=== PATIENT | female | born 1945 | race Hispanic/Latino ===

== ENCOUNTER 2019-10-06 10:38 | Inpatient (IN) | payer MEDICARE ==
[2019-10-06] MEDS ORDERED: ZIPRASIDONE MESYLATE 20 MG VIAL IM PRN (11:37)
[2019-10-06] MEDS ORDERED: BENZTROPINE 2 MG/2 ML INJ IM NR (11:37)
[2019-10-06] MEDS ORDERED: PROMETHAZINE 25 MG TAB PO PRN ×2 (11:37)
[2019-10-07] MEDS ORDERED: NON-FORMULARY EACH (Oxcarbazepine [Trileptal] 600 MG) PO SCH (07:30)
[2019-10-07] MEDS ORDERED: TETRACYCLINE HCL 250 MG PO SCH (07:30)
[2019-10-07] MEDS: LORazepam 2 MG/ML VIAL IM PRN (07:41)
[2019-10-07] MEDS ORDERED: hydrOXYzine HCL 25 MG TAB PO SCH (08:00)
[2019-10-07] MEDS ORDERED: FUROSEMIDE 20 MG TAB PO SCH (08:00)
--- NOTE | 2019-10-07 08:12 | History and Physical Report ---
GP History & Physical - History of Present Illness Date of admission: 10/07/19 Date of Examination: 10/07/19 Reason for Admission: Danger to others, Psychopathology interference Chief Complaint: Acute Cherise History of Present Illness: Nurse Admission note: A 74yrs old female brought in by EMS on a stretcher,accompanied by staff from the facility she was coming from. Pt diagnosed with Bipolar Disorder Acute Cherise. Hx of DM, PVD, Chronic Venous DX, HTN, Hepatitis CVery talkative yelling, angry and upset. Transferred by EMS staff to a w/c. Pt. continued to carry on , non compliant, not listening and will not follow direction, but finally allowed staff to asses her skin. She has vascular wound on Rt medial ankle and Lt anterior foot. She refused to eat her lunch and will not be still for vital signs. Will continue to monitor. HPI Patient is a 74 year old female with past psychiatric history of schizophrenia who presented to facility with acute cherise. Patient seen yelling threatening to staff, constantly hyperverbal and saying the same set of words to every staff member. She reports being here because "Mary" a family of hers and encouraged her and lied to her to come here. Patients states she does not need any psychiatric intervention, she threatened to mckinley, says she has ulcers in her legs and they are genetic. Patient also reports she wont be taking any medication at all. Pt refused to answer questions pertaining to mental health history. She is hyper verbal, irritated, poor sleep and displays Grandiosity, threatening to mckinley and make everyone loose everything that they have got because she can. Continues to be hyperverbal, has only slept less than 2 hours and refusing oral meds. PRN medication given for acute manic symptoms and medication non compliance as pt is agitated towards staff. PAST PSYCHIATRIC HISTORY: Diagnoses: Bipolar Suicide attempts or Self-harm behavior Prior psychiatric hospitalizations Substance Abuse history: Previous psychiatric medications tried: Outpatient treatment: PAST MEDICAL HISTORY: Family Psychiatric History: None reported or documented SOCIAL HISTORY Marital Status: Living Arrangements: Employment Status: Access to guns/weapons: Education: History of Abuse: Legal History: REVIEW OF SYSTEMS ROS cannot be reliably obtained from the patient due to her present mental state MENTAL STATUS EXAMINATION General Appearance and Behavior: Age appropriate, good hygiene, wearing appropriate clothes, lying in bed, good eye contact, uncooperative irritable with questioning. Cooperation: Hostile and Guarded Psychomotor Behavior: unremarkable and within normal limits Mood: not good Affect and affective range: dysthymic, irritable Thought Process: Circumstantial, Pressured Thought Content: Obsessions, Illogical, Grandiose, Phobia Paranoid Speech: N pressured, loud volume Intellectual Functioning: Average Suicidal Ideation: Denies SI Homicidal Ideation: Denies HI Impulse Control: Impaired Insight and Judgment: Limited insight and judgment Memory: unaccessible Attention: Divided attention impaired Orientation: Alert, oriented Assessment and Plan - Psychiatric problem (1) Severe manic bipolar 1 disorder with psychotic behavior Current Visit: Yes Status: Acute Treatment Plan Pt currenlty refusing meds Patient will be admitted for inpatient psychiatric evaluation, medication adjustment and close monitoring The patient's behavior, mood, sleep and appetite will be closely monitored. Patient will be enrolled in individual and group therapeutic sessions and encouraged to attend. Patient will be provided with a safe and structured environment. Patient's physical health needs will be addressed by the Hospitalist. Hospitalist Consulted Labs including CBC, CMP, Lipid profile and Hemoglobin A1C ordered Social Assessment will be completed and the Fermentation Scientist will work with patient and family to ensure a suitable and safe disposition Medication adjustment will be made as clinically indicated Usual Wellness Religious/Preservation: - Start Trazodone 50 mg po QHS & 50 mg po QHS PRN between 10 PM & 2 AM for insomnia - Start Melatonin 5 mg po QHS to promote circadian rhythm - Start [place]-3 for brain health, reduce impulsivity, and as adjunctive treatment for mood disorder, continue upon discharge given overall benefits. - Start B1 prophylaxis with 200 mg po for 5 days The patient agreed on the treatment plan, understood the risk, benefit, alternative treatment, potential consequence of no treatment, and gave informed consent. Initial Certification Inpatient psych services: I certify that the inpatient psychiatric services are required for treatment that could reasonably be expected to improve the patient's condition. Estimated days: 7 Post hospital care: primary care provider, psychiatric provider Legal Status: Other (1014 status) Patient Problems: Current Active Problems Severe manic bipolar 1 disorder with psychotic behavior (Acute) Reaction to Hospitalization: Accepting Medications and Allergies Allergies Allergy/AdvReac Type Severity Reaction Status Date / Time divalproex sodium Allergy Hives Verified 02/02/13 15:16 [From Depakote] Interferons Allergy Hives Verified 02/02/13 15:15 latex Allergy Hives Verified 02/02/13 15:17 levofloxacin [From Levaquin] Allergy Unknown Unverified 10/06/19 11:18 mupirocin [From Bactroban] Allergy Hives Verified 02/02/13 15:17 mupirocin calcium Allergy Hives Verified 02/02/13 15:17 [From Bactroban] Penicillins Allergy Hives Verified 02/02/13 15:16 Sulfa (Sulfonamide Allergy Unknown Unverified 10/06/19 11:17 Antibiotics) lithium AdvReac Unknown Unverified 10/06/19 11:18 mycins Allergy Hives Uncoded 02/02/13 15:17 Home Medications Medication Instructions Recorded Confirmed Last Taken Type Furosemide [Lasix TAB] 20 mg PO [facility] 10/06/19 10/06/19 Unknown History Nitrofurantoin Macrocrystal 100 mg PO [facility] 10/06/19 10/06/19 Unknown History [Nitrofurantoin] OXcarbazepine [Trileptal] 600 mg PO [facility] 10/06/19 10/06/19 Unknown History Potassium Chloride [K-Dur] 10 meq PO [facility] 10/06/19 10/06/19 Unknown History QUEtiapine [SEROquel] 200 mg PO [facility] 10/06/19 10/06/19 Unknown History Tetracycline HCl 250 mg PO [facility] 10/06/19 10/06/19 Unknown History busPIRone [Buspar] 5 mg PO [facility] 10/06/19 10/06/19 Unknown History hydrOXYzine HCL [Atarax] 25 mg PO [facility] 10/06/19 10/06/19 Unknown History lamoTRIgine [LaMICtal] 100 mg PO K 10/06/19 10/06/19 Unknown History Active Meds: Active Medications Buspirone HCl (Buspar) 5 mg PO K [facility] Furosemide (Lasix) 20 mg PO K [facility] Hydroxyzine HCl (Atarax) 25 mg PO UNK [facility] Lamotrigine (Lamictal) 100 mg PO [facility] Lorazepam (Ativan) 2 mg IM Q4HR PRN PRN Reason: Agitation Last Admin: 10/07/19 07:41 Dose: 2 mg Documented by: Miscellaneous Medication (Oxcarbazepine [Trileptal]) 600 mg PO [facility] Miscellaneous Medication (Tetracycline Hcl [Tetracycline Hcl]) 250 mg PO [facility] Potassium Chloride (K-Dur) 10 meq PO [facility] Quetiapine Fumarate (Seroquel) 200 mg PO [facility] Ziprasidone (Geodon) 10 mg IM Q4H PRN PRN Reason: Agitation Stop: 10/07/19 11:37 Last Admin: 10/07/19 07:41 Dose: 10 mg Documented by: Results - Results Labs/Vitals: Laboratory Last Values POC Glucose 117 (70-105) H 10/06/19 17:14 Assessment and Plan - Psychiatric problem (1) Severe manic bipolar 1 disorder with psychotic behavior Current Visit: Yes Status: Acute Physician Certification - Certification Statement Physician Certification Statement: This is an acknowledgement statement that SMILEY MISTRY is a 74 year old F who requires inpatient psychiatric admission for treatment which could reasonably be expected to improve the patient's condition for Estimated period of time patient will need to remain in the hospital: [ ] Plan for post-hospital care: [ ]
[2019-10-07] MEDS: POTASSIUM CHLORIDE ER 10 MEQ TAB PO SCH (19:07)
[2019-10-07] MEDS: busPIRone 5 MG TAB PO SCH ×2 (19:07→21:44)
[2019-10-07] MEDS: lamoTRIgine 100 MG TAB PO SCH (19:09)
[2019-10-07] MEDS: OXcarbazepine 300 MG TAB PO SCH ×2 (19:09→21:44)
[2019-10-07] MEDS: QUEtiapine 200 MG TAB PO SCH (21:44)
--- NOTE | 2019-10-08 07:48 | Progress Note ---
Subjective Date of service: 10/08/19 Principal diagnosis: Severe manic bipolar 1 disorder with psychotic behavior Subjective Comment: Psych Nurse: 1840 Received pt. in am very anxious, agitated, talkative, repeating same statements of how her life has been destroyed, Ms Hernandez has lost her trust, how she got vascular disease from her family, how she will mckinley the hospital and the hospital will loose all her money. Pt non-compliant with care, yelling at staff and not wanting help from staff. Finally, she slept for about 6hrs, woke up and began repeating the same statements. She refused all her meds. Finally at about 1640, pt agreed to have a desert and she ate all of it. Psych Progress Patient seen this AM, awake and alert, informed patient if she is aware that not sleeping is contributing poorly and negatively to her mental health and she needs to be compliant and take her medicines. Patient agrees to take her home meds and seroquel only. Reason for inpatient psychiatric hospitalizaiton: Medication non compliance, acute cherise with secondary paranoia EVIEW OF SYSTEMS ROS cannot be reliably obtained from the patient due to her present mental state MENTAL STATUS EXAMINATION General Appearance and Behavior: Age appropriate, good hygiene, wearing appropriate clothes, lying in bed, good eye contact, uncooperative irritable with questioning. Cooperation: Hostile and Guarded Psychomotor Behavior: unremarkable and within normal limits Mood: not good Affect and affective range: dysthymic, irritable Thought Process: Circumstantial, Pressured Thought Content: Obsessions, Illogical, Grandiose, Phobia Paranoid Speech: N pressured, loud volume Intellectual Functioning: Average Suicidal Ideation: Denies SI Homicidal Ideation: Denies HI Impulse Control: Impaired Insight and Judgment: Limited insight and judgment Memory: unaccessible Attention: Divided attention impaired Orientation: Alert, oriented Assessment and Plan Psychiatric problem (1) Severe manic bipolar 1 disorder with psychotic behavior Current Visit: Yes Status: Acute Treatment Plan Pt currenlty refusing meds Patient will be admitted for inpatient psychiatric evaluation, medication adjustment and close monitoring The patient's behavior, mood, sleep and appetite will be closely monitored. Patient will be enrolled in individual and group therapeutic sessions and encouraged to attend. Patient will be provided with a safe and structured environment. Patient's physical health needs will be addressed by the Hospitalist. Hospitalist Consulted Labs including CBC, CMP, Lipid profile and Hemoglobin A1C ordered Social Assessment will be completed and the Block Breaker Operator will work with patient and family to ensure a suitable and safe disposition Medication adjustment will be made as clinically indicated Usual Wellness Baptism/Preservation: - Start Trazodone 50 mg po QHS & 50 mg po QHS PRN between 10 PM & 2 AM for insomnia - Start Melatonin 5 mg po QHS to promote circadian rhythm - Start [place]-3 for brain health, reduce impulsivity, and as adjunctive treatment for mood disorder, continue upon discharge given overall benefits. - Start B1 prophylaxis with 200 mg po for 5 days The patient agreed on the treatment plan, understood the risk, benefit, alternative treatment, potential consequence of no treatment, and gave informed consent. Initial Certification Inpatient psych services: I certify that the inpatient psychiatric services are required for treatment that could reasonably be expected to improve the patient's condition. Assessment and Plan - Patient Problems (1) Severe manic bipolar 1 disorder with psychotic behavior Current Visit: Yes Status: Acute Medications and Allergies Allergies Allergy/AdvReac Type Severity Reaction Status Date / Time divalproex sodium Allergy Hives Verified 02/02/13 15:16 [From Depakote] Interferons Allergy Hives Verified 02/02/13 15:15 latex Allergy Hives Verified 02/02/13 15:17 levofloxacin [From Levaquin] Allergy Unknown Unverified 10/06/19 11:18 mupirocin [From Bactroban] Allergy Hives Verified 02/02/13 15:17 mupirocin calcium Allergy Hives Verified 02/02/13 15:17 [From Bactroban] Penicillins Allergy Hives Verified 02/02/13 15:16 Sulfa (Sulfonamide Allergy Unknown Unverified 10/06/19 11:17 Antibiotics) lithium AdvReac Unknown Unverified 10/06/19 11:18 mycins Allergy Hives Uncoded 02/02/13 15:17 Home Medications Medication Instructions Recorded Confirmed Last Taken Type Furosemide [Lasix TAB] 20 mg PO [facility] 10/06/19 10/06/19 Unknown History Nitrofurantoin Macrocrystal 100 mg PO [facility] 10/06/19 10/06/19 Unknown History [Nitrofurantoin] OXcarbazepine [Trileptal] 600 mg PO [facility] 10/06/19 10/06/19 Unknown History Potassium Chloride [K-Dur] 10 meq PO [facility] 10/06/19 10/06/19 Unknown History QUEtiapine [SEROquel] 200 mg PO [facility] 10/06/19 10/06/19 Unknown History Tetracycline HCl 250 mg PO [facility] 10/06/19 10/06/19 Unknown History busPIRone [Buspar] 5 mg PO [facility] 10/06/19 10/06/19 Unknown History hydrOXYzine HCL [Atarax] 25 mg PO [facility] 10/06/19 10/06/19 Unknown History lamoTRIgine [LaMICtal] 100 mg PO [facility] 10/06/19 10/06/19 Unknown History Active Meds: Active Medications Buspirone HCl (Buspar) 5 mg PO BID [facility] Last Admin: 10/07/19 21:44 Dose: Not Given Documented by: Furosemide (Lasix) 20 mg PO K [facility] Hydroxyzine Pamoate (Vistaril) 25 mg PO Q6H PRN PRN Reason: Anxiety Lamotrigine (Lamictal) 100 mg PO DAILY [facility] Last Admin: 10/07/19 19:09 Dose: Not Given Documented by: Lorazepam (Ativan) 2 mg IM Q4HR PRN PRN Reason: Agitation Last Admin: 10/07/19 07:41 Dose: 2 mg Documented by: Oxcarbazepine (Trileptal) 600 mg PO BID [facility] Last Admin: 10/07/19 21:44 Dose: Not Given Documented by: Potassium Chloride (K-Dur) 10 meq PO DAILY [facility] Last Admin: 10/07/19 19:07 Dose: Not Given Documented by: Quetiapine Fumarate (Seroquel) 200 mg PO QHS [facility] Last Admin: 10/07/19 21:44 Dose: Not Given Documented by: Results - Results Labs/Vitals: Laboratory Last Values POC Glucose 113 (70-105) H 10/08/19 06:38 Last Vital Signs Temp 98.9 F 10/07/19 22:00 Pulse 78 10/07/19 22:00 Resp 18 10/07/19 22:00 BP 142/76 10/07/19 22:00 Pulse Ox 98 10/07/19 22:00
[2019-10-08] MEDS: busPIRone 5 MG TAB PO SCH ×2 (09:40→22:23)
[2019-10-08] MEDS: POTASSIUM CHLORIDE ER 10 MEQ TAB PO SCH (09:40)
[2019-10-08] MEDS: OXcarbazepine 300 MG TAB PO SCH ×2 (09:40→22:22)
[2019-10-08] MEDS: lamoTRIgine 100 MG TAB PO SCH (09:41)
[2019-10-08] MEDS: QUEtiapine 200 MG TAB PO SCH (22:24)
[2019-10-09] MEDS: OXcarbazepine 300 MG TAB PO SCH ×2 (09:14→21:43)
[2019-10-09] MEDS: lamoTRIgine 100 MG TAB PO SCH (09:14)
[2019-10-09] MEDS: POTASSIUM CHLORIDE ER 10 MEQ TAB PO SCH (09:14)
[2019-10-09] MEDS: busPIRone 5 MG TAB PO SCH ×2 (09:15→21:43)
--- NOTE | 2019-10-09 10:31 | Progress Note ---
Subjective Date of service: 10/09/19 Principal diagnosis: Severe manic bipolar 1 disorder with psychotic behavior Subjective Comment: The patient's medical record was reviewed and the patient's progress was discussed with the nursing staff. The nurse note states the patient denies si/hi/ah vh. Patient presents as mildly paranoid especially regarding her medication. She was reluctant to take her medications but was reminded the doctor said she would need a shot if she didn't take them During my interview with the patient today, she is sitting in the dayroom. She is a/o x 2. She is calm and cooperative. She is [place]. She denies SI/HI or hallucinations of any kind. Her thoughts are somewhat disorganized. She asks "how many floors does this place have?" She then says, "Is it still open?" The patients asks, "how often do yall test for the barr virus?" The reason for continued inpatient treatment: The patient appears to be paranoid at times, and disorganized. Will continue to treat and stabilize in order to ensue a safe discharge. REVIEW OF SYSTEMS Constitutional: Negative for weight loss ENT: Negative for stridor Respiratory: Negative for cough or hemoptysis All other systems reviewed and are negative MENTAL STATUS EXAMINATION General Appearance: Dressed appropriately Behavior: Calm and cooperative Mood: "spirits stay up" Affect and affective range: Congruent with stated mood Thought Process: tangential, disorganized Speech: Normal volume, Regular rate and rhythm, Thought Content: Suicidal Ideation: Denies SI Homicidal Ideation: Denies HI Hallucinations: Denies Delusions: Yes Insight and Judgment: Limited Memory/Cognition: Impaired Attention: Normal Assessment Bipolar Disorder, Current Episode Elsie Treatment Plan Patient will be admitted for inpatient psychiatric evaluation, medication adjustment and close monitoring The patient's behavior, mood, sleep and appetite will be closely monitored. Patient will be enrolled in individual and group therapeutic sessions and encouraged to attend. Patient will be provided with a safe and structured environment. Patient's physical health needs will be addressed by the Hospitalist. Hospitalist Consulted Labs including CBC, CMP, Lipid profile and Hemoglobin A1C ordered Social Assessment will be completed and the Third Officer will work with pat ient and family to ensure a suitable and safe disposition Medication adjustment will be made as clinically indicated No changes today Usual Wellness Yarsanism/Preservation: - Start Trazodone 50 mg po QHS & 50 mg po QHS PRN between 10 PM & 2 AM for insomnia - Start Melatonin 5 mg po QHS to promote circadian rhythm The patient agreed on the treatment plan, understood the risk, benefit, alternative treatment, potential consequence of no treatment, and gave informed consent. Estimated Length of stay (3 days) Outpatient psychiatry upon discharge Medications and Allergies Allergies Allergy/AdvReac Type Severity Reaction Status Date / Time divalproex sodium Allergy Hives Verified 02/02/13 15:16 [From Depakote] Interferons Allergy Hives Verified 02/02/13 15:15 latex Allergy Hives Verified 02/02/13 15:17 levofloxacin [From Levaquin] Allergy Unknown Unverified 10/06/19 11:18 mupirocin [From Bactroban] Allergy Hives Verified 02/02/13 15:17 mupirocin calcium Allergy Hives Verified 02/02/13 15:17 [From Bactroban] Penicillins Allergy Hives Verified 02/02/13 15:16 Sulfa (Sulfonamide Allergy Unknown Unverified 10/06/19 11:17 Antibiotics) lithium AdvReac Unknown Unverified 10/06/19 11:18 mycins Allergy Hives Uncoded 02/02/13 15:17 Home Medications Medication Instructions Recorded Confirmed Last Taken Type Furosemide [Lasix TAB] 20 mg PO [facility] 10/06/19 10/06/19 Unknown History Nitrofurantoin Macrocrystal 100 mg PO [facility] 10/06/19 10/06/19 Unknown History [Nitrofurantoin] OXcarbazepine [Trileptal] 600 mg PO [facility] 10/06/19 10/06/19 Unknown History Potassium Chloride [K-Dur] 10 meq PO [facility] 10/06/19 10/06/19 Unknown History QUEtiapine [SEROquel] 200 mg PO [facility] 10/06/19 10/06/19 Unknown History Tetracycline HCl 250 mg PO K 10/06/19 10/06/19 Unknown History busPIRone [Buspar] 5 mg PO K 10/06/19 10/06/19 Unknown History hydrOXYzine HCL [Atarax] 25 mg PO [facility] 10/06/19 10/06/19 Unknown History lamoTRIgine [LaMICtal] 100 mg PO [facility] 10/06/19 10/06/19 Unknown History Active Meds: Active Medications Buspirone HCl (Buspar) 5 mg PO BID [facility] Last Admin: 10/09/19 09:15 Dose: 5 mg Documented by: Furosemide (Lasix) 20 mg PO UNK [facility] Hydroxyzine Pamoate (Vistaril) 25 mg PO Q6H PRN PRN Reason: Anxiety Lamotrigine (Lamictal) 100 mg PO DAILY [facility] Last Admin: 10/09/19 09:14 Dose: 100 mg Documented by: Lorazepam (Ativan) 2 mg IM Q4HR PRN PRN Reason: Agitation Last Admin: 10/07/19 07:41 Dose: 2 mg Documented by: Oxcarbazepine (Trileptal) 600 mg PO BID [facility] Last Admin: 10/09/19 09:14 Dose: 600 mg Documented by: Potassium Chloride (K-Dur) 10 meq PO DAILY [facility] Last Admin: 10/09/19 09:14 Dose: 10 meq Documented by: Quetiapine Fumarate (Seroquel) 200 mg PO QHS [facility] Last Admin: 10/08/19 22:24 Dose: 200 mg Documented by: Results - Results Labs/Vitals: Laboratory Last Values POC Glucose 93 (70-105) 10/09/19 06:30 Last Vital Signs Temp 98.6 F 10/09/19 06:33 Pulse 70 10/09/19 06:33 Resp 18 10/09/19 06:33 BP 103/55 10/09/19 06:33 Pulse Ox 93 10/09/19 06:33
[2019-10-09 17:10] LABS: Basophils # (Auto) 0.2 K/mm3 (0.0-0.1); Basophils % (Auto) 1.2 % (0.0-1.8); Eosinophils # (Auto) 0.1 K/mm3 (0.0-0.4); Eosinophils % (Auto) 1.2 % (0.0-4.3); Hemoglobin 14.1 gm/dl (10.1-14.3); Lymphocytes # (Auto) 2.9 K/mm3 (1.2-5.4); Lymphocytes % (Auto) 23.7 % (13.4-35.0); Monocytes # (Auto) 0.9 K/mm3 (0.0-0.8); Monocytes % (Auto) 7.3 % (0.0-7.3)
[2019-10-09 17:36] LABS: Alanine Aminotransferase 35 units/L (7-56); Albumin 4.8 g/dL (3.9-5); Blood Urea Nitrogen 16 mg/dL (7-17); Calcium 9.6 mg/dL (8.4-10.2); Chol/HDL Ratio 2.52 %; HDL Cholesterol 68 mg/dL (40-59); Hemolysis Index 6; LDL Cholesterol,Direct 99 mg/dL (50-130)
[2019-10-09 17:39] LABS: BUN/Creatinine Ratio 23
[2019-10-09 18:17] LABS: Mean Corpuscular HGB Conc 34 % (30-34); Mean Corpuscular Volume 88 fl (79-97); Platelet Count 436 K/mm3 (140-440); Red Blood Count 4.86 M/mm3 (3.65-5.03); Red Cell Distribution Width 14.1 % (13.2-15.2)
[2019-10-09] MEDS: QUEtiapine 200 MG TAB PO SCH (21:43)
[2019-10-10] MEDS: oxyCODONE /ACETAMINOPHEN 5-325MG TAB PO PRN (05:48)
--- NOTE | 2019-10-10 09:20 | Progress Note ---
Subjective Date of service: 10/10/19 Principal diagnosis: Severe manic bipolar 1 disorder with psychotic behavior Subjective Comment: The patient's medical record was reviewed and the patient's progress was discussed with the nursing staff. The nurse note states the patient has some verbal aggression and yelling at staff. During my interview with the patient today, the patient is awake in her room. She is a/o x 3. She is irritable and verbally aggressive at times during the interview. When assessing her orientation, she states to me "stop asking me questions that is none of your concern." She says, "and I will never speak or talk about someone like Alex Ramires whom I respect, with anyone like you," when asking the patient who was the President of the [employer]. She denies SI/HI or hallucinations of any kind, stating "No, I am not mentally ill. Thank you." The patient says she "slept good until 4:30 this morning until I had to go potty." She says her mood is "fine." The reason for continued inpatient treatment: The patient appears to be paranoid at times. Will continue to treat and stabilize in order to ensue a safe discharge. REVIEW OF SYSTEMS Constitutional: Negative for weight loss ENT: Negative for stridor Respiratory: Negative for cough or hemoptysis All other systems reviewed and are negative MENTAL STATUS EXAMINATION General Appearance: Dressed appropriately Behavior: Calm and cooperative Mood: "fine" Affect and affective range: Congruent with stated mood Thought Process: tangential, disorganized Speech: Normal volume, Regular rate and rhythm, Thought Content: Suicidal Ideation: Denies SI Homicidal Ideation: Denies HI Hallucinations: Denies Delusions: Yes Insight and Judgment: Limited Memory/Cognition: Impaired Attention: Normal Assessment Bipolar Disorder, Current Episode Elsie Treatment Plan Patient will be admitted for inpatient psychiatric evaluation, medication adjustment and close monitoring The patient's behavior, mood, sleep and appetite will be closely monitored. Patient will be enrolled in individual and group therapeutic sessions and encouraged to attend. Patient will be provided with a safe and structured environment. Patient's physical health needs will be addressed by the Hospitalist. Hospitalist Consulted Labs including CBC, CMP, Lipid profile and Hemoglobin A1C ordered Social Assessment will be completed and the Sanitation Truck Driver will work with patient and family to ensure a suitable and safe disposition Medication adjustment will be made as clinically indicated No changes today Usual Wellness Gnosticist/Preservation: - Start Trazodone 50 mg po QHS & 50 mg po QHS PRN between 10 PM & 2 AM for insomnia - Start Melatonin 5 mg po QHS to promote circadian rhythm The patient agreed on the treatment plan, understood the risk, benefit, alternative treatment, potential consequence of no treatment, and gave informed consent. Estimated Length of stay (3 days) Outpatient psychiatry upon discharge Medications and Allergies Allergies Allergy/AdvReac Type Severity Reaction Status Date / Time divalproex sodium Allergy Hives Verified 02/02/13 15:16 [From Depakote] Interferons Allergy Hives Verified 02/02/13 15:15 latex Allergy Hives Verified 02/02/13 15:17 levofloxacin [From Levaquin] Allergy Unknown Unverified 10/06/19 11:18 mupirocin [From Bactroban] Allergy Hives Verified 02/02/13 15:17 mupirocin calcium Allergy Hives Verified 02/02/13 15:17 [From Bactroban] Penicillins Allergy Hives Verified 02/02/13 15:16 Sulfa (Sulfonamide Allergy Unknown Unverified 10/06/19 11:17 Antibiotics) lithium AdvReac Unknown Unverified 10/06/19 11:18 mycins Allergy Hives Uncoded 02/02/13 15:17 Home Medications Medication Instructions Recorded Confirmed Last Taken Type Furosemide [Lasix TAB] 20 mg PO [facility] 10/06/19 10/06/19 Unknown History Nitrofurantoin Macrocrystal 100 mg PO [facility] 10/06/19 10/06/19 Unknown History [Nitrofurantoin] OXcarbazepine [Trileptal] 600 mg PO [facility] 10/06/19 10/06/19 Unknown History Potassium Chloride [K-Dur] 10 meq PO [facility] 10/06/19 10/06/19 Unknown History QUEtiapine [SEROquel] 200 mg PO [facility] 10/06/19 10/06/19 Unknown History Tetracycline HCl 250 mg PO [facility] 10/06/19 10/06/19 Unknown History busPIRone [Buspar] 5 mg PO K 10/06/19 10/06/19 Unknown History hydrOXYzine HCL [Atarax] 25 mg PO [facility] 10/06/19 10/06/19 Unknown History lamoTRIgine [LaMICtal] 100 mg PO [facility] 10/06/19 10/06/19 Unknown History Active Meds: Active Medications Buspirone HCl (Buspar) 5 mg PO BID [facility] Last Admin: 10/09/19 21:43 Dose: 5 mg Documented by: Furosemide (Lasix) 20 mg PO UNK [facility] Hydroxyzine Pamoate (Vistaril) 25 mg PO Q6H PRN PRN Reason: Anxiety Lamotrigine (Lamictal) 100 mg PO DAILY [facility] Last Admin: 10/09/19 09:14 Dose: 100 mg Documented by: Lorazepam (Ativan) 2 mg IM Q4HR PRN PRN Reason: Agitation Last Admin: 10/07/19 07:41 Dose: 2 mg Documented by: Oxcarbazepine (Trileptal) 600 mg PO BID [facility] Last Admin: 10/09/19 21:43 Dose: 600 mg Documented by: Oxycodone/Acetaminophen (Percocet 5/325) 1 tab PO Q6H PRN PRN Reason: Pain, Moderate (4-6) Last Admin: 10/10/19 05:48 Dose: 1 tab Documented by: Potassium Chloride (K-Dur) 10 meq PO DAILY [facility] Last Admin: 10/09/19 09:14 Dose: 10 meq Documented by: Quetiapine Fumarate (Seroquel) 200 mg PO QHS [facility] Last Admin: 10/09/19 21:43 Dose: 200 mg Documented by: Results - Results Labs/Vitals: Laboratory Last Values WBC 12.1 K/mm3 (4.5-11.0) H 10/09/19 16:24 RBC 4.86 M/mm3 (3.65-5.03) 10/09/19 16:24 Hgb 14.1 gm/dl (10.1-14.3) 10/09/19 16:24 Hct 43.0 % (30.3-42.9) H 10/09/19 16:24 MCV 88 fl (79-97) 10/09/19 16:24 MCH 30 pg (28-32) 10/09/19 16:24 MCHC 34 % (30-34) 10/09/19 16:24 RDW 14.1 % (13.2-15.2) 10/09/19 16:24 Plt Count 436 K/mm3 (140-440) 10/09/19 16:24 Lymph % (Auto) 23.7 % (13.4-35.0) 10/09/19 16:24 [place] % (Auto) 7.3 % (0.0-7.3) 10/09/19 16:24 Eos % (Auto) 1.2 % (0.0-4.3) 10/09/19 16:24 Baso % (Auto) 1.2 % (0.0-1.8) 10/09/19 16:24 Lymph # 2.9 K/mm3 (1.2-5.4) 10/09/19 16:24 [place] # 0.9 K/mm3 (0.0-0.8) H 10/09/19 16:24 Eos # 0.1 K/mm3 (0.0-0.4) 10/09/19 16:24 Baso # 0.2 K/mm3 (0.0-0.1) H 10/09/19 16:24 Seg Neutrophils % 66.6 % (40.0-70.0) 10/09/19 16:24 Seg Neutrophils # 8.1 K/mm3 (1.8-7.7) H 10/09/19 16:24 Sodium 130 mmol/L (137-145) L 10/09/19 16:24 Potassium 4.6 mmol/L (3.6-5.0) 10/09/19 16:24 Chloride 91.8 mmol/L (98-107) L 10/09/19 16:24 Carbon Dioxide 25 mmol/L (22-30) 10/09/19 16:24 Anion Gap 18 mmol/L 10/09/19 16:24 BUN 16 mg/dL (7-17) 10/09/19 16:24 Creatinine 0.7 mg/dL (0.6-1.2) 10/09/19 16:24 Estimated GFR > 60 ml/min 10/09/19 16:24 BUN/Creatinine Ratio 23 % 10/09/19 16:24 Glucose 99 mg/dL (65-100) 10/09/19 16:24 POC Glucose 107 (70-105) H 10/10/19 07:05 Hemoglobin A1c 5.3 % (4-6) 10/09/19 16:24 Calcium 9.6 mg/dL (8.4-10.2) 10/09/19 16:24 Total Bilirubin 0.30 mg/dL (0.1-1.2) 10/09/19 16:24 AST 33 units/L (5-40) 10/09/19 16:24 ALT 35 units/L (7-56) 10/09/19 16:24 Alkaline Phosphatase 110 units/L (35-129) 10/09/19 16:24 Total Protein 7.1 g/dL (6.3-8.2) 10/09/19 16:24 Albumin 4.8 g/dL (3.9-5) 10/09/19 16:24 Albumin/Globulin Ratio 2.1 % 10/09/19 16:24 Triglycerides 67 mg/dL (2-149) 10/09/19 16:24 Cholesterol 172 mg/dL (50-199) 10/09/19 16:24 LDL Cholesterol Direct 99 mg/dL (50-130) 10/09/19 16:24 HDL Cholesterol 68 mg/dL (40-59) H 10/09/19 16:24 Cholesterol/HDL Ratio 2.52 % 10/09/19 16:24 TSH 1.200 mlU/mL (0.270-4.200) 10/09/19 16:24 Last Vital Signs Temp 99.5 F 10/09/19 19:51 Pulse 74 10/09/19 19:51 Resp 20 10/09/19 19:51 BP 134/73 10/09/19 19:51 Pulse Ox 100 10/09/19 19:51
[2019-10-10] MEDS: busPIRone 5 MG TAB PO SCH ×2 (12:17→21:24)
[2019-10-10] MEDS: hydrOXYzine PAMOATE 25 MG CAP PO PRN ×2 (12:17→21:25)
[2019-10-10] MEDS: lamoTRIgine 100 MG TAB PO SCH (12:18)
[2019-10-10] MEDS: POTASSIUM CHLORIDE ER 10 MEQ TAB PO SCH (12:19)
[2019-10-10] MEDS: OXcarbazepine 300 MG TAB PO SCH ×2 (20:37→21:24)
[2019-10-10] MEDS: QUEtiapine 200 MG TAB PO SCH (21:24)
[2019-10-11] MEDS: oxyCODONE /ACETAMINOPHEN 5-325MG TAB PO PRN (01:04)
--- NOTE | 2019-10-11 09:16 | Progress Note ---
Subjective Date of service: 10/11/19 Principal diagnosis: Severe manic bipolar 1 disorder with psychotic behavior Subjective Comment: The patient's medical record was reviewed and the patient's progress was discussed with the nursing staff. The nurse note states the patient is alert and oriented x 3. She was offered assistance to take shower and have dressings changed. She shouted at staff repeatedly. "No, Leave me alone. I will not do it. I'm supposed to do that Mondays and ." Patient refused assistance to go to BR but was observed doing it correctly on her own. During my interview with the patient today, the patient is awake in her room. She is a/o x 3. She seems irritable, although she says she feels "okay." The patient states, "I just wish everyone would stop asking me that." She denies SI/HI or hallucinations of any kind, stating, "stop it. I told you I'm not mentally ill. I don't have any of that." The reason for continued inpatient treatment: The patient . Will continue to treat and stabilize in order to ensue a safe discharge. REVIEW OF SYSTEMS Constitutional: Negative for weight loss ENT: Negative for stridor Respiratory: Negative for cough or hemoptysis All other systems reviewed and are negative MENTAL STATUS EXAMINATION General Appearance: Dressed appropriately Behavior: Irritable, cooperative Mood: "okay" Affect and affective range: Congruent with stated mood Thought Process: Goal directed Speech: Normal volume, Regular rate and rhythm, Thought Content: Suicidal Ideation: Denies SI Homicidal Ideation: Denies HI Hallucinations: Denies Delusions: None elicited Insight and Judgment: Limited Memory/Cognition: Impaired Attention: Normal Assessment Bipolar Disorder, Current Episode Elsie Treatment Plan Patient will be admitted for inpatient psychiatric evaluation, medication adjustment and close monitoring The patient's behavior, mood, sleep and appetite will be closely monitored. Patient will be enrolled in individual and group therapeutic sessions and encouraged to attend. Patient will be provided with a safe and structured environment. Patient's physical health needs will be addressed by the Hospitalist. Hospitalist Consulted Labs including CBC, CMP, Lipid profile and Hemoglobin A1C ordered Social Assessment will be completed and the Paper Machine Operator will work with patient and family to ensure a suitable and safe disposition Medication adjustment will be made as clinically indicated No changes today Usual Wellness Muslim/Preservation: - Start Trazodone 50 mg po QHS & 50 mg po QHS PRN between 10 PM & 2 AM for insomnia - Start Melatonin 5 mg po QHS to promote circadian rhythm The patient agreed on the treatment plan, understood the risk, benefit, alternative treatment, potential consequence of no treatment, and gave informed consent. Estimated Length of stay (2 days) Outpatient psychiatry upon discharge Medications and Allergies Allergies Allergy/AdvReac Type Severity Reaction Status Date / Time divalproex sodium Allergy Hives Verified 02/02/13 15:16 [From Depakote] Interferons Allergy Hives Verified 02/02/13 15:15 latex Allergy Hives Verified 02/02/13 15:17 levofloxacin [From Levaquin] Allergy Unknown Unverified 10/06/19 11:18 mupirocin [From Bactroban] Allergy Hives Verified 02/02/13 15:17 mupirocin calcium Allergy Hives Verified 02/02/13 15:17 [From Bactroban] Penicillins Allergy Hives Verified 02/02/13 15:16 Sulfa (Sulfonamide Allergy Unknown Verified 10/11/19 07:23 Antibiotics) lithium AdvReac Unknown Verified 10/11/19 07:24 mycins Allergy Hives Uncoded 02/02/13 15:17 Home Medications Medication Instructions Recorded Confirmed Last Taken Type Furosemide [Lasix TAB] 20 mg PO [facility] 10/06/19 10/06/19 Unknown History Nitrofurantoin Macrocrystal 100 mg PO [facility] 10/06/19 10/06/19 Unknown History [Nitrofurantoin] OXcarbazepine [Trileptal] 600 mg PO [facility] 10/06/19 10/06/19 Unknown History Potassium Chloride [K-Dur] 10 meq PO [facility] 10/06/19 10/06/19 Unknown History QUEtiapine [SEROquel] 200 mg PO [facility] 10/06/19 10/06/19 Unknown History Tetracycline HCl 250 mg PO [facility] 10/06/19 10/06/19 Unknown History busPIRone [Buspar] 5 mg PO [facility] 10/06/19 10/06/19 Unknown History hydrOXYzine HCL [Atarax] 25 mg PO K 10/06/19 10/06/19 Unknown History lamoTRIgine [LaMICtal] 100 mg PO [facility] 10/06/19 10/06/19 Unknown History Active Meds: Active Medications Buspirone HCl (Buspar) 5 mg PO BID [facility] Last Admin: 10/10/19 21:24 Dose: 5 mg Documented by: Furosemide (Lasix) 20 mg PO UNK [facility] Hydroxyzine Pamoate (Vistaril) 25 mg PO Q6H PRN PRN Reason: Anxiety Last Admin: 10/10/19 21:25 Dose: 25 mg Documented by: Lamotrigine (Lamictal) 100 mg PO DAILY [facility] Last Admin: 10/10/19 12:18 Dose: 100 mg Documented by: Lorazepam (Ativan) 2 mg IM Q4HR PRN PRN Reason: Agitation Last Admin: 10/07/19 07:41 Dose: 2 mg Documented by: Oxcarbazepine (Trileptal) 600 mg PO BID [facility] Last Admin: 10/10/19 21:24 Dose: 600 mg Documented by: Oxycodone/Acetaminophen (Percocet 5/325) 1 tab PO Q6H PRN PRN Reason: Pain, Moderate (4-6) Last Admin: 10/11/19 01:04 Dose: 1 tab Documented by: Potassium Chloride (K-Dur) 10 meq PO DAILY [facility] Last Admin: 10/10/19 12:19 Dose: 10 meq Documented by: Quetiapine Fumarate (Seroquel) 200 mg PO QHS [facility] Last Admin: 10/10/19 21:24 Dose: 200 mg Documented by: Results - Results Labs/Vitals: Laboratory Last Values WBC 12.1 K/mm3 (4.5-11.0) H 10/09/19 16:24 RBC 4.86 M/mm3 (3.65-5.03) 10/09/19 16:24 Hgb 14.1 gm/dl (10.1-14.3) 10/09/19 16:24 Hct 43.0 % (30.3-42.9) H 10/09/19 16:24 MCV 88 fl (79-97) 10/09/19 16:24 MCH 30 pg (28-32) 10/09/19 16:24 MCHC 34 % (30-34) 10/09/19 16:24 RDW 14.1 % (13.2-15.2) 10/09/19 16:24 Plt Count 436 K/mm3 (140-440) 10/09/19 16:24 Lymph % (Auto) 23.7 % (13.4-35.0) 10/09/19 16:24 [place] % (Auto) 7.3 % (0.0-7.3) 10/09/19 16:24 Eos % (Auto) 1.2 % (0.0-4.3) 10/09/19 16:24 Baso % (Auto) 1.2 % (0.0-1.8) 10/09/19 16:24 Lymph # 2.9 K/mm3 (1.2-5.4) 10/09/19 16:24 [place] # 0.9 K/mm3 (0.0-0.8) H 10/09/19 16:24 Eos # 0.1 K/mm3 (0.0-0.4) 10/09/19 16:24 Baso # 0.2 K/mm3 (0.0-0.1) H 10/09/19 16:24 Seg Neutrophils % 66.6 % (40.0-70.0) 10/09/19 16:24 Seg Neutrophils # 8.1 K/mm3 (1.8-7.7) H 10/09/19 16:24 Sodium 130 mmol/L (137-145) L 10/09/19 16:24 Potassium 4.6 mmol/L (3.6-5.0) 10/09/19 16:24 Chloride 91.8 mmol/L (98-107) L 10/09/19 16:24 Carbon Dioxide 25 mmol/L (22-30) 10/09/19 16:24 Anion Gap 18 mmol/L 10/09/19 16:24 BUN 16 mg/dL (7-17) 10/09/19 16:24 Creatinine 0.7 mg/dL (0.6-1.2) 10/09/19 16:24 Estimated GFR > 60 ml/min 10/09/19 16:24 BUN/Creatinine Ratio 23 % 10/09/19 16:24 Glucose 99 mg/dL (65-100) 10/09/19 16:24 POC Glucose 103 (70-105) 10/11/19 06:43 Hemoglobin A1c 5.3 % (4-6) 10/09/19 16:24 Calcium 9.6 mg/dL (8.4-10.2) 10/09/19 16:24 Total Bilirubin 0.30 mg/dL (0.1-1.2) 10/09/19 16:24 AST 33 units/L (5-40) 10/09/19 16:24 ALT 35 units/L (7-56) 10/09/19 16:24 Alkaline Phosphatase 110 units/L (35-129) 10/09/19 16:24 Total Protein 7.1 g/dL (6.3-8.2) 10/09/19 16:24 Albumin 4.8 g/dL (3.9-5) 10/09/19 16:24 Albumin/Globulin Ratio 2.1 % 10/09/19 16:24 Triglycerides 67 mg/dL (2-149) 10/09/19 16:24 Cholesterol 172 mg/dL (50-199) 10/09/19 16:24 LDL Cholesterol Direct 99 mg/dL (50-130) 10/09/19 16:24 HDL Cholesterol 68 mg/dL (40-59) H 10/09/19 16:24 Cholesterol/HDL Ratio 2.52 % 10/09/19 16:24 TSH 1.200 mlU/mL (0.270-4.200) 10/09/19 16:24 Last Vital Signs Temp 99.4 F 10/10/19 22:00 Pulse 105 H 10/10/19 22:00 Resp 18 10/11/19 01:04 BP 156/78 10/10/19 22:00 Pulse Ox 97 10/10/19 22:00
[2019-10-11] MEDS: OXcarbazepine 300 MG TAB PO SCH ×2 (11:00→21:33)
[2019-10-11] MEDS: busPIRone 5 MG TAB PO SCH ×2 (11:00→21:34)
[2019-10-11] MEDS: POTASSIUM CHLORIDE ER 10 MEQ TAB PO SCH (11:00)
[2019-10-11] MEDS: hydrOXYzine PAMOATE 25 MG CAP PO PRN ×2 (11:01→21:34)
[2019-10-11] MEDS: lamoTRIgine 100 MG TAB PO SCH (11:01)
--- NOTE | 2019-10-11 14:23 | Consultation ---
History of Present Illness - Reason for Consult Consult date: 10/11/19 Medical management - History of Present Illness 74 year old F with a medical history of DM, PVD, Chronic Venous DX, HTN, Hep atitis C admitted to psych unit for acute manic episode. Currently being managed for this in the unit. Not able to get medical information from patient today. She kept saying she has UTI and wants treatment. Medications have been reviewed. Medications and Allergies Allergies Allergy/AdvReac Type Severity Reaction Status Date / Time divalproex sodium Allergy Hives Verified 02/02/13 15:16 [From Depakote] Interferons Allergy Hives Verified 02/02/13 15:15 latex Allergy Hives Verified 02/02/13 15:17 levofloxacin [From Levaquin] Allergy Unknown Unverified 10/06/19 11:18 mupirocin [From Bactroban] Allergy Hives Verified 02/02/13 15:17 mupirocin calcium Allergy Hives Verified 02/02/13 15:17 [From Bactroban] Penicillins Allergy Hives Verified 02/02/13 15:16 Sulfa (Sulfonamide Allergy Unknown Verified 10/11/19 07:23 Antibiotics) lithium AdvReac Unknown Verified 10/11/19 07:24 mycins Allergy Hives Uncoded 02/02/13 15:17 Home Medications Medication Instructions Recorded Confirmed Last Taken Type Furosemide [Lasix TAB] 20 mg PO UNK 10/06/19 10/06/19 Unknown History Nitrofurantoin Macrocrystal 100 mg PO UNK 10/06/19 10/06/19 Unknown History [Nitrofurantoin] OXcarbazepine [Trileptal] 600 mg PO UNK 10/06/19 10/06/19 Unknown History Potassium Chloride [K-Dur] 10 meq PO UNK 10/06/19 10/06/19 Unknown History QUEtiapine [SEROquel] 200 mg PO UNK 10/06/19 10/06/19 Unknown History Tetracycline HCl 250 mg PO UNK 10/06/19 10/06/19 Unknown History busPIRone [Buspar] 5 mg PO UNK 10/06/19 10/06/19 Unknown History hydrOXYzine HCL [Atarax] 25 mg PO [facility]K 10/06/19 10/06/19 Unknown History lamoTRIgine [LaMICtal] 100 mg PO [facility]K 10/06/19 10/06/19 Unknown History Active Meds: Active Medications Buspirone HCl (Buspar) 5 mg PO BID [facility] Last Admin: 10/11/19 11:00 Dose: 5 mg Documented by: Furosemide (Lasix) 20 mg PO K [facility] Hydroxyzine Pamoate (Vistaril) 25 mg PO Q6H PRN PRN Reason: Anxiety Last Admin: 10/11/19 11:01 Dose: 25 mg Documented by: Lamotrigine (Lamictal) 100 mg PO DAILY [facility] Last Admin: 10/11/19 11:01 Dose: 100 mg Documented by: Lorazepam (Ativan) 2 mg IM Q4HR PRN PRN Reason: Agitation Last Admin: 10/07/19 07:41 Dose: 2 mg Documented by: Oxcarbazepine (Trileptal) 600 mg PO BID [facility] Last Admin: 10/11/19 11:00 Dose: 600 mg Documented by: Oxycodone/Acetaminophen (Percocet 5/325) 1 tab PO Q6H PRN PRN Reason: Pain, Moderate (4-6) Last Admin: 10/11/19 01:04 Dose: 1 tab Documented by: Potassium Chloride (K-Dur) 10 meq PO DAILY [facility] Last Admin: 10/11/19 11:00 Dose: 10 meq Documented by: Quetiapine Fumarate (Seroquel) 200 mg PO QHS [facility] Last Admin: 10/10/19 21:24 Dose: 200 mg Documented by: Review of Systems All systems: negative (says she has UTI and requests for treatment) Exam - Constitutional Vitals: Temp Pulse Resp BP Pulse Ox 98.1 F 105 H 18 157/75 98 10/11/19 10:01 10/10/19 22:00 10/11/19 10:01 10/11/19 10:01 10/11/19 10:01 General appearance: Present: no acute distress, well-nourished - EENT Eyes: Present: PERRL ENT: hearing intact, clear oral mucosa - Neck Neck: Present: supple, normal ROM - Respiratory Respiratory effort: normal Respiratory: bilateral: CTA - Cardiovascular Heart Sounds: Present: S1 & S2. Absent: rub, click - Extremities Extremities: abnormal (dressing intact in bilateral lower extremities. ) Peripheral Pulses: within normal limits - Abdominal General gastrointestinal: Present: soft, non-tender, non-distended, normal bowel sounds Female genitourinary: Present: normal - Integumentary Integumentary: Present: clear, warm, dry - Musculoskeletal Musculoskeletal: gait normal, strength equal bilaterally - Psychiatric Psychiatric: appropriate mood/affect, intact judgment & insight - Neurologic Neurologic: CNII-XII intact, moves all extremities Results - Labs CBC & Chem 7: 10/09/19 16:24 10/09/19 16:24 Assessment and Plan - Patient Problems (1) Severe manic bipolar 1 disorder with psychotic behavior Current Visit: Yes Status: Acute (2) Possible urinary tract infection Current Visit: Yes Status: Acute Plan to address problem: Will check urinalysis. (3) HTN (hypertension) Current Visit: Yes Status: Acute Plan to address problem: Monitor BP (4) Hyponatremia Current Visit: Yes Status: Acute Plan to address problem: Possibly psychogenic polydipsia Trend sodium Urine electrolytes, osmolality
[2019-10-11] MEDS: QUEtiapine 200 MG TAB PO SCH (21:34)
[2019-10-12 05:31] LABS: Basophils # (Auto) 0.1 K/mm3 (0.0-0.1); Basophils % (Auto) 1.1 % (0.0-1.8); Eosinophils # (Auto) 0.5 K/mm3 (0.0-0.4); Eosinophils % (Auto) 5.8 % (0.0-4.3); Hematocrit 37.4 % (30.3-42.9); Hemoglobin 12.7 gm/dl (10.1-14.3); Lymphocytes # (Auto) 3.1 K/mm3 (1.2-5.4); Lymphocytes % (Auto) 34.2 % (13.4-35.0); Mean Corpuscular HGB Conc 34 % (30-34); Mean Corpuscular Volume 88 fl (79-97); Monocytes # (Auto) 0.7 K/mm3 (0.0-0.8); Monocytes % (Auto) 7.4 % (0.0-7.3); Platelet Count 291 K/mm3 (140-440); Red Blood Count 4.23 M/mm3 (3.65-5.03); Red Cell Distribution Width 14.2 % (13.2-15.2)
[2019-10-12 05:48] LABS: Bacteria,Urine 1+ /HPF (Negative); Bilirubin,Urine NEG (Negative); Blood,Urine NEG (Negative); Color,Urine Yellow (Yellow); Mucus,Urine FEW /HPF; Protein,Urine <15 mg/dL mg/dL (Negative); Urobilinogen,Urine < 2.0 mg/dL (<2.0)
[2019-10-12 05:52] LABS: Alanine Aminotransferase 21 units/L (7-56); Blood Urea Nitrogen 12 mg/dL (7-17); Calcium 9.5 mg/dL (8.4-10.2); Hemolysis Index 0
[2019-10-12 06:03] LABS: BUN/Creatinine Ratio 24
--- NOTE | 2019-10-12 07:58 | Progress Note ---
Subjective Date of service: 10/12/19 Principal diagnosis: Severe manic bipolar 1 disorder with psychotic behavior Subjective Comment: The patient's medical record was reviewed and the patient's progress was discussed with the nursing staff. The nurse note states the patient is sitting in the quiet room hyperverbal and cursing at staff sometimes rolling her chair behind staff shouting at staff and peers. She is difficult to redirect and accuses staff of giving her ulcers on her feet. She is a/o x 3 mood and affect is labile. Note also states the patient is talking loudly in her room to unseen people. During my interview with the patient today, the patient is rolling in the ramires in her wheelchair. She is a/o x 3. She is paranoid. The patient appears manic. She is hyperverbal, and ranting. Her speech is tangential. Her thoughts are disorganized. The patient is unable to be redirected. The patient is going on about her "sister being insane, and taking my money." She then shouts, "I don't belong here. I am not insane." The patient then says, "I'm not yelling. I'm def and that's why I talk this way." The patient starts ranting about her feet and "people being the reason they are like this." She denies SI/HI or hallucinations of any kind, but continues to be heard talking loudly when no one is around. The reason for continued inpatient treatment: The patient appears manic. Will continue to treat and stabilize in order to ensue a safe discharge. REVIEW OF SYSTEMS Constitutional: Negative for weight loss ENT: Negative for stridor Respiratory: Negative for cough or hemoptysis All other systems reviewed and are negative MENTAL STATUS EXAMINATION General Appearance: Dressed appropriately Behavior: Irritable, cooperative Mood: "okay" Affect and affective range: Congruent with stated mood Thought Process: responding to internal stimuli, disorganized Speech: hyperverbal, ranting, disorganized Thought Content: Suicidal Ideation: Denies SI Homicidal Ideation: Denies HI Hallucinations: Yes Delusions: Paranoid Insight and Judgment: Limited Memory/Cognition: Impaired Attention: Normal Assessment Bipolar Disorder, Current Episode [facility]sie Treatment Plan Patient will be admitted for inpatient psychiatric evaluation, medication adjustment and close monitoring The patient's behavior, mood, sleep and appetite will be closely monitored. Patient will be enrolled in individual and group therapeutic sessions and encouraged to attend. Patient will be provided with a safe and structured environment. Patient's physical health needs will be addressed by the Hospitalist. Hospitalist Consulted Labs including CBC, CMP, Lipid profile and Hemoglobin A1C ordered Social Assessment will be completed and the Tallow Refiner will work with patient and family to ensure a suitable and safe disposition Medication adjustment will be made as clinically indicated Decrease night time seroquel to 150mg po qhs Start Seroquel 50mg po qam Start Klonopin 0.5mg po BID x 2 days Usual Wellness Yarsani/Preservation: - Start Trazodone 50 mg po QHS & 50 mg po QHS PRN between 10 PM & 2 AM for insomnia - Start Melatonin 5 mg po QHS to promote circadian rhythm The patient agreed on the treatment plan, understood the risk, benefit, alternative treatment, potential consequence of no treatment, and gave informed consent. Estimated Length of stay (2 days) Outpatient psychiatry upon discharge Medications and Allergies Allergies Allergy/AdvReac Type Severity Reaction Status Date / Time divalproex sodium Allergy Hives Verified 02/02/13 15:16 [From Depakote] Interferons Allergy Hives Verified 02/02/13 15:15 latex Allergy Hives Verified 02/02/13 15:17 levofloxacin [From Levaquin] Allergy Unknown Unverified 10/06/19 11:18 mupirocin [From Bactroban] Allergy Hives Verified 02/02/13 15:17 mupirocin calcium Allergy Hives Verified 02/02/13 15:17 [From Bactroban] Penicillins Allergy Hives Verified 02/02/13 15:16 Sulfa (Sulfonamide Allergy Unknown Verified 10/11/19 07:23 Antibiotics) lithium AdvReac Unknown Verified 10/11/19 07:24 mycins Allergy Hives Uncoded 02/02/13 15:17 Home Medications Medication Instructions Recorded Confirmed Last Taken Type Furosemide [Lasix TAB] 20 mg PO UNK 10/06/19 10/06/19 Unknown History Nitrofurantoin Macrocrystal 100 mg PO UNK 10/06/19 10/06/19 Unknown History [Nitrofurantoin] OXcarbazepine [Trileptal] 600 mg PO UNK 10/06/19 10/06/19 Unknown History Potassium Chloride [K-Dur] 10 meq PO UNK 10/06/19 10/06/19 Unknown History QUEtiapine [SEROquel] 200 mg PO [facility] 10/06/19 10/06/19 Unknown History Tetracycline HCl 250 mg PO [facility] 10/06/19 10/06/19 Unknown History busPIRone [Buspar] 5 mg PO [facility] 10/06/19 10/06/19 Unknown History hydrOXYzine HCL [Atarax] 25 mg PO [facility] 10/06/19 10/06/19 Unknown History lamoTRIgine [LaMICtal] 100 mg PO [facility] 10/06/19 10/06/19 Unknown History Active Meds: Active Medications Buspirone HCl (Buspar) 5 mg PO BID [facility] Last Admin: 10/11/19 21:34 Dose: 5 mg Documented by: Furosemide (Lasix) 20 mg PO K [facility] Hydroxyzine Pamoate (Vistaril) 25 mg PO Q6H PRN PRN Reason: Anxiety Last Admin: 10/11/19 21:34 Dose: 25 mg Documented by: Lamotrigine (Lamictal) 100 mg PO DAILY [facility] Last Admin: 10/11/19 11:01 Dose: 100 mg Documented by: Lorazepam (Ativan) 2 mg IM Q4HR PRN PRN Reason: Agitation Last Admin: 10/07/19 07:41 Dose: 2 mg Documented by: Oxcarbazepine (Trileptal) 600 mg PO BID [facility] Last Admin: 10/11/19 21:33 Dose: 600 mg Documented by: Oxycodone/Acetaminophen (Percocet 5/325) 1 tab PO Q6H PRN PRN Reason: Pain, Moderate (4-6) Last Admin: 10/11/19 01:04 Dose: 1 tab Documented by: Potassium Chloride (K-Dur) 10 meq PO DAILY [facility] Last Admin: 10/11/19 11:00 Dose: 10 meq Documented by: Quetiapine Fumarate (Seroquel) 200 mg PO QHS [facility] Last Admin: 10/11/19 21:34 Dose: 200 mg Documented by: Results - Results Labs/Vitals: Laboratory Last Values WBC 9.0 K/mm3 (4.5-11.0) 10/12/19 05:07 RBC 4.23 M/mm3 (3.65-5.03) 10/12/19 05:07 Hgb 12.7 gm/dl (10.1-14.3) 10/12/19 05:07 Hct 37.4 % (30.3-42.9) 10/12/19 05:07 MCV 88 fl (79-97) 10/12/19 05:07 MCH 30 pg (28-32) 10/12/19 05:07 MCHC 34 % (30-34) 10/12/19 05:07 RDW 14.2 % (13.2-15.2) 10/12/19 05:07 Plt Count 291 K/mm3 (140-440) 10/12/19 05:07 Lymph % (Auto) 34.2 % (13.4-35.0) 10/12/19 05:07 [place] % (Auto) 7.4 % (0.0-7.3) H 10/12/19 05:07 Eos % (Auto) 5.8 % (0.0-4.3) H 10/12/19 05:07 Baso % (Auto) 1.1 % (0.0-1.8) 10/12/19 05:07 Lymph # 3.1 K/mm3 (1.2-5.4) 10/12/19 05:07 [place] # 0.7 K/mm3 (0.0-0.8) 10/12/19 05:07 Eos # 0.5 K/mm3 (0.0-0.4) H 10/12/19 05:07 Baso # 0.1 K/mm3 (0.0-0.1) 10/12/19 05:07 Seg Neutrophils % 51.5 % (40.0-70.0) 10/12/19 05:07 Seg Neutrophils # 4.6 K/mm3 (1.8-7.7) 10/12/19 05:07 Sodium 135 mmol/L (137-145) L 10/12/19 05:07 Potassium 4.6 mmol/L (3.6-5.0) 10/12/19 05:07 Chloride 96.9 mmol/L (98-107) L 10/12/19 05:07 Carbon Dioxide 27 mmol/L (22-30) 10/12/19 05:07 Anion Gap 16 mmol/L 10/12/19 05:07 BUN 12 mg/dL (7-17) 10/12/19 05:07 Creatinine 0.5 mg/dL (0.6-1.2) L 10/12/19 05:07 Estimated GFR > 60 ml/min 10/12/19 05:07 BUN/Creatinine Ratio 24 % 10/12/19 05:07 Glucose 117 mg/dL (65-100) H 10/12/19 05:07 POC Glucose 103 (70-105) 10/11/19 06:43 Hemoglobin A1c 5.3 % (4-6) 10/09/19 16:24 Osmolality 275 Mosm/kg 10/12/19 Unknown Calcium 9.5 mg/dL (8.4-10.2) 10/12/19 05:07 Total Bilirubin 0.40 mg/dL (0.1-1.2) 10/12/19 05:07 AST 22 units/L (5-40) 10/12/19 05:07 ALT 21 units/L (7-56) 10/12/19 05:07 Alkaline Phosphatase 93 units/L (35-129) 10/12/19 05:07 Total Protein 6.5 g/dL (6.3-8.2) 10/12/19 05:07 Albumin 4.0 g/dL (3.9-5) 10/12/19 05:07 Albumin/Globulin Ratio 1.6 % 10/12/19 05:07 Triglycerides 67 mg/dL (2-149) 10/09/19 16:24 Cholesterol 172 mg/dL (50-199) 10/09/19 16:24 LDL Cholesterol Direct 99 mg/dL (50-130) 10/09/19 16:24 HDL Cholesterol 68 mg/dL (40-59) H 10/09/19 16:24 Cholesterol/HDL Ratio 2.52 % 10/09/19 16:24 TSH 1.200 mlU/mL (0.270-4.200) 10/09/19 16:24 Urine Color Yellow (Yellow) 10/12/19 05:29 Urine Turbidity Clear (Clear) 10/12/19 05:29 Urine pH 6.0 (5.0-7.0) 10/12/19 05:29 Ur Specific [place] 1.018 (1.003-1.030) 10/12/19 05:29 Urine Protein <15 mg/dl mg/dL (Negative) 10/12/19 05:29 Urine Glucose (UA) Neg mg/dL (Negative) 10/12/19 05:29 Urine Ketones Tr mg/dL (Negative) 10/12/19 05:29 Urine Blood Neg (Negative) 10/12/19 05:29 Urine Nitrite Neg (Negative) 10/12/19 05:29 Urine Bilirubin Neg (Negative) 10/12/19 05:29 Urine Urobilinogen < 2.0 mg/dL (<2.0) 10/12/19 05:29 Ur Leukocyte Esterase Tr (Negative) 10/12/19 05:29 Urine WBC (Auto) 6.0 /HPF (0.0-6.0) 10/12/19 05:29 Urine RBC (Auto) 3.0 /HPF (0.0-6.0) 10/12/19 05:29 U Epithel Cells (Auto) < 1.0 /HPF (0-13.0) 10/12/19 05:29 Urine Bacteria (Auto) 1+ /HPF (Negative) 10/12/19 05:29 Urine Mucus Few /HPF 10/12/19 05:29 Urine Osmolality 607 Mosm/kg 10/12/19 05:29 Last Vital Signs Temp 99.5 F 10/11/19 19:59 Pulse 99 H 10/11/19 19:59 Resp 20 10/11/19 19:59 BP 128/70 10/11/19 19:59 Pulse Ox 94 10/11/19 19:59
[2019-10-12] MEDS: busPIRone 5 MG TAB PO SCH ×2 (10:27→21:56)
[2019-10-12] MEDS: QUEtiapine 25 MG TAB PO SCH ×2 (10:29→21:57)
[2019-10-12] MEDS: POTASSIUM CHLORIDE ER 10 MEQ TAB PO SCH (10:49)
[2019-10-12] MEDS: OXcarbazepine 300 MG TAB PO SCH ×2 (10:55→21:56)
[2019-10-12] MEDS: lamoTRIgine 100 MG TAB PO SCH (10:55)
[2019-10-12] MEDS: clonazePAM 0.5 MG TAB PO SCH ×2 (10:55→21:56)
[2019-10-12] MEDS: LORazepam 2 MG/ML VIAL IM PRN (21:55)
[2019-10-12] MEDS: QUEtiapine 100 MG TAB PO SCH (21:57)
[2019-10-12] MEDS ORDERED: QUEtiapine 50 MG, QUEtiapine 100 MG PO SCH (22:00)
[2019-10-13] MEDS: LORazepam 2 MG/ML VIAL IM PRN (05:01)
[2019-10-13] MEDS: oxyCODONE /ACETAMINOPHEN 5-325MG TAB PO PRN (09:05)
[2019-10-13] MEDS: QUEtiapine 25 MG TAB PO SCH ×2 (09:06→21:41)
[2019-10-13] MEDS: busPIRone 5 MG TAB PO SCH (09:06)
[2019-10-13] MEDS: clonazePAM 0.5 MG TAB PO SCH ×2 (09:06→21:41)
[2019-10-13] MEDS: OXcarbazepine 300 MG TAB PO SCH ×2 (09:07→21:41)
[2019-10-13] MEDS: POTASSIUM CHLORIDE ER 10 MEQ TAB PO SCH (09:07)
[2019-10-13] MEDS: lamoTRIgine 100 MG TAB PO SCH (09:07)
--- NOTE | 2019-10-13 09:12 | Progress Note ---
Subjective Date of service: 10/13/19 Principal diagnosis: Severe manic bipolar 1 disorder with psychotic behavior Subjective Comment: The patient's medical record was reviewed and the patient's progress was discussed with the nursing staff. The nurse note states the patient last evening when patient refused her medications she received Ativan 2 mg IM which was effective. She rested quietly until around 4 am when she awoke and started yelling. She was demanding her clothes be washed because it is Saturday. She continued to escalate with her behavior. She was screaming "You ruined my life." "I will make one phone call and have you killed." Patient again received Ativan 2 mg IM for agitation. During my interview with the patient today, the patient is lying in bed. She is asleep but easily arouses. The patient states, "you made the wounds on my feet worse." She then says, "I need a word with the wound doctor." She says "everything they do is illegal." The patient denies SI/HI, stating "I told you no three times." She also denies hallucinations of any kind, "no, please stop asking those stupid questions." The reason for continued inpatient treatment: The patient aggressive and appears manic. Will continue to treat and stabilize in order to ensue a safe discharge. REVIEW OF SYSTEMS Constitutional: Negative for weight loss ENT: Negative for stridor Respiratory: Negative for cough or hemoptysis All other systems reviewed and are negative MENTAL STATUS EXAMINATION General Appearance: Dressed appropriately Behavior: Irritable, cooperative Mood: "okay" Affect and affective range: Congruent with stated mood Thought Process: disorganized Speech: nonsensical Thought Content: Suicidal Ideation: Denies SI Homicidal Ideation: Denies HI Hallucinations: Denies Delusions: Paranoid Insight and Judgment: Limited Memory/Cognition: Impaired Attention: Normal Assessment Bipolar Disorder, Current Episode Elsie Treatment Plan Patient will be admitted for inpatient psychiatric evaluation, medication adjustment and close monitoring The patient's behavior, mood, sleep and appetite will be closely monitored. Patient will be enrolled in individual and group therapeutic sessions and encouraged to attend. Patient will be provided with a safe and structured environment. Patient's physical health needs will be addressed by the Hospitalist. Hospitalist Consulted Labs including CBC, CMP, Lipid profile and Hemoglobin A1C ordered Social Assessment will be completed and the Phone Screener will work with patient and family to ensure a suitable and safe disposition Medication adjustment will be made as clinically indicated Decreased Seroquel to 150mg po qhs yesterday Increase Buspar 15mg po BID d/c Seroquel 50mg po qam Start Risperidone 0.25mg po daily Usual Wellness Yarsani/Preservation: - Start Trazodone 50 mg po QHS & 50 mg po QHS PRN between 10 PM & 2 AM for insomnia - Start Melatonin 5 mg po QHS to promote circadian rhythm The patient agreed on the treatment plan, understood the risk, benefit, alternative treatment, potential consequence of no treatment, and gave informed consent. Estimated Length of stay (2 days) Outpatient psychiatry upon discharge Medications and Allergies Allergies Allergy/AdvReac Type Severity Reaction Status Date / Time divalproex sodium Allergy Hives Verified 02/02/13 15:16 [From Depakote] Interferons Allergy Hives Verified 02/02/13 15:15 latex Allergy Hives Verified 02/02/13 15:17 levofloxacin [From Levaquin] Allergy Unknown Unverified 10/06/19 11:18 mupirocin [From Bactroban] Allergy Hives Verified 02/02/13 15:17 mupirocin calcium Allergy Hives Verified 02/02/13 15:17 [From Bactroban] Penicillins Allergy Hives Verified 02/02/13 15:16 Sulfa (Sulfonamide Allergy Unknown Verified 10/11/19 07:23 Antibiotics) lithium AdvReac Unknown Verified 10/11/19 07:24 mycins Allergy Hives Uncoded 02/02/13 15:17 Home Medications Medication Instructions Recorded Confirmed Last Taken Type Furosemide [Lasix TAB] 20 mg PO [facility] 10/06/19 10/06/19 Unknown History Nitrofurantoin Macrocrystal 100 mg PO [facility] 10/06/19 10/06/19 Unknown History [Nitrofurantoin] OXcarbazepine [Trileptal] 600 mg PO [facility] 10/06/19 10/06/19 Unknown History Potassium Chloride [K-Dur] 10 meq PO [facility] 10/06/19 10/06/19 Unknown History QUEtiapine [SEROquel] 200 mg PO [facility] 10/06/19 10/06/19 Unknown History Tetracycline HCl 250 mg PO [facility] 10/06/19 10/06/19 Unknown History busPIRone [Buspar] 5 mg PO [facility] 10/06/19 10/06/19 Unknown History hydrOXYzine HCL [Atarax] 25 mg PO [facility] 10/06/19 10/06/19 Unknown History lamoTRIgine [LaMICtal] 100 mg PO [facility] 10/06/19 10/06/19 Unknown History Active Meds: Active Medications Buspirone HCl (Buspar) 5 mg PO BID [facility] Last Admin: 10/12/19 21:56 Dose: Not Given Documented by: Clonazepam (Klonopin) 0.5 mg PO BID [facility] Stop: 10/14/19 14:00 Last Admin: 10/12/19 21:56 Dose: Not Given Documented by: Furosemide (Lasix) 20 mg PO [facility] Hydroxyzine Pamoate (Vistaril) 25 mg PO Q6H PRN PRN Reason: Anxiety Last Admin: 10/11/19 21:34 Dose: 25 mg Documented by: Lamotrigine (Lamictal) 100 mg PO DAILY [facility] Last Admin: 10/12/19 10:55 Dose: Not Given Documented by: Lorazepam (Ativan) 2 mg IM Q4HR PRN PRN Reason: Agitation Last Admin: 10/13/19 05:01 Dose: 2 mg Documented by: Oxcarbazepine (Trileptal) 600 mg PO BID [facility] Last Admin: 10/12/19 21:56 Dose: Not Given Documented by: Oxycodone/Acetaminophen (Percocet 5/325) 1 tab PO Q6H PRN PRN Reason: Pain, Moderate (4-6) Last Admin: 10/11/19 01:04 Dose: 1 tab Documented by: Potassium Chloride (K-Dur) 10 meq PO DAILY [facility] Last Admin: 10/12/19 10:49 Dose: Not Given Documented by: Quetiapine Fumarate (Seroquel) 50 mg PO DAILY [facility] Last Admin: 10/12/19 10:29 Dose: 50 mg Documented by: Quetiapine Fumarate (Seroquel) 100 mg PO QHS [facility] Last Admin: 10/12/19 21:57 Dose: Not Given Documented by: Quetiapine Fumarate (Seroquel) 50 mg PO QHS [facility] Last Admin: 10/12/19 21:57 Dose: Not Given Documented by: Results - Results Labs/Vitals: Laboratory Last Values WBC 9.0 K/mm3 (4.5-11.0) 10/12/19 05:07 RBC 4.23 M/mm3 (3.65-5.03) 10/12/19 05:07 Hgb 12.7 gm/dl (10.1-14.3) 10/12/19 05:07 Hct 37.4 % (30.3-42.9) 10/12/19 05:07 MCV 88 fl (79-97) 10/12/19 05:07 MCH 30 pg (28-32) 10/12/19 05:07 MCHC 34 % (30-34) 10/12/19 05:07 RDW 14.2 % (13.2-15.2) 10/12/19 05:07 Plt Count 291 K/mm3 (140-440) 10/12/19 05:07 Lymph % (Auto) 34.2 % (13.4-35.0) 10/12/19 05:07 [place] % (Auto) 7.4 % (0.0-7.3) H 10/12/19 05:07 Eos % (Auto) 5.8 % (0.0-4.3) H 10/12/19 05:07 Baso % (Auto) 1.1 % (0.0-1.8) 10/12/19 05:07 Lymph # 3.1 K/mm3 (1.2-5.4) 10/12/19 05:07 [place] # 0.7 K/mm3 (0.0-0.8) 10/12/19 05:07 Eos # 0.5 K/mm3 (0.0-0.4) H 10/12/19 05:07 Baso # 0.1 K/mm3 (0.0-0.1) 10/12/19 05:07 Seg Neutrophils % 51.5 % (40.0-70.0) 10/12/19 05:07 Seg Neutrophils # 4.6 K/mm3 (1.8-7.7) 10/12/19 05:07 Sodium 135 mmol/L (137-145) L 10/12/19 05:07 Potassium 4.6 mmol/L (3.6-5.0) 10/12/19 05:07 Chloride 96.9 mmol/L (98-107) L 10/12/19 05:07 Carbon Dioxide 27 mmol/L (22-30) 10/12/19 05:07 Anion Gap 16 mmol/L 10/12/19 05:07 BUN 12 mg/dL (7-17) 10/12/19 05:07 Creatinine 0.5 mg/dL (0.6-1.2) L 10/12/19 05:07 Estimated GFR > 60 ml/min 10/12/19 05:07 BUN/Creatinine Ratio 24 % 10/12/19 05:07 Glucose 117 mg/dL (65-100) H 10/12/19 05:07 POC Glucose 103 (70-105) 10/11/19 06:43 Hemoglobin A1c 5.3 % (4-6) 10/09/19 16:24 Osmolality 275 Mosm/kg 10/12/19 Unknown Calcium 9.5 mg/dL (8.4-10.2) 10/12/19 05:07 Total Bilirubin 0.40 mg/dL (0.1-1.2) 10/12/19 05:07 AST 22 units/L (5-40) 10/12/19 05:07 ALT 21 units/L (7-56) 10/12/19 05:07 Alkaline Phosphatase 93 units/L (35-129) 10/12/19 05:07 Total Protein 6.5 g/dL (6.3-8.2) 10/12/19 05:07 Albumin 4.0 g/dL (3.9-5) 10/12/19 05:07 Albumin/Globulin Ratio 1.6 % 10/12/19 05:07 Triglycerides 67 mg/dL (2-149) 10/09/19 16:24 Cholesterol 172 mg/dL (50-199) 10/09/19 16:24 LDL Cholesterol Direct 99 mg/dL (50-130) 10/09/19 16:24 HDL Cholesterol 68 mg/dL (40-59) H 10/09/19 16:24 Cholesterol/HDL Ratio 2.52 % 10/09/19 16:24 TSH 1.200 mlU/mL (0.270-4.200) 10/09/19 16:24 Urine Color Yellow (Yellow) 10/12/19 05:29 Urine Turbidity Clear (Clear) 10/12/19 05:29 Urine pH 6.0 (5.0-7.0) 10/12/19 05:29 Ur Specific [place] 1.018 (1.003-1.030) 10/12/19 05:29 Urine Protein <15 mg/dl mg/dL (Negative) 10/12/19 05:29 Urine Glucose (UA) Neg mg/dL (Negative) 10/12/19 05:29 Urine Ketones Tr mg/dL (Negative) 10/12/19 05:29 Urine Blood Neg (Negative) 10/12/19 05:29 Urine Nitrite Neg (Negative) 10/12/19 05:29 Urine Bilirubin Neg (Negative) 10/12/19 05:29 Urine Urobilinogen < 2.0 mg/dL (<2.0) 10/12/19 05:29 Ur Leukocyte Esterase Tr (Negative) 10/12/19 05:29 Urine WBC (Auto) 6.0 /HPF (0.0-6.0) 10/12/19 05:29 Urine RBC (Auto) 3.0 /HPF (0.0-6.0) 10/12/19 05:29 U Epithel Cells (Auto) < 1.0 /HPF (0-13.0) 10/12/19 05:29 Urine Bacteria (Auto) 1+ /HPF (Negative) 10/12/19 05:29 Urine Mucus Few /HPF 10/12/19 05:29 Urine Osmolality 607 Mosm/kg 10/12/19 05:29 Last Vital Signs Temp 98.4 F 10/13/19 06:49 Pulse 86 10/13/19 06:49 Resp 18 10/13/19 06:49 BP 121/77 10/13/19 06:49 Pulse Ox 98 10/13/19 06:49
[2019-10-13] MEDS ORDERED: risperiDONE 0.25 MG TAB PO SCH (10:00)
[2019-10-13] MEDS: busPIRone 10 MG TAB PO SCH ×2 (13:58→21:40)
[2019-10-13] MEDS: QUEtiapine 100 MG TAB PO SCH (21:40)
[2019-10-14] MEDS: oxyCODONE /ACETAMINOPHEN 5-325MG TAB PO PRN ×2 (00:52→21:18)
--- NOTE | 2019-10-14 08:14 | Progress Note ---
Subjective Date of service: 10/14/19 Principal diagnosis: Severe manic bipolar 1 disorder with psychotic behavior Subjective Comment: The patient's medical record was reviewed and the patient's progress was discussed with the nursing staff. The nurse note states the patient received laying awake in bed with a face mask on. Pt irritable and angry. Pt A&O to person and place. During my interview with the patient today, the patient is lying in bed. She is awake. She is a/o x 2. She is more calm than yesterday, but easily irritated. She is still somewhat paranoid. She tells me that "a woman named, Raquel destroyed my life." She then says, "when am I getting out of this place." The patient states, "I only talk loud like this because I'm def." She denies SI/HI or hallucinations of any kind. The reason for continued inpatient treatment: The patient has episodes of irritability. Will continue to treat and stabilize in order to ensue a safe discharge. REVIEW OF SYSTEMS Constitutional: Negative for weight loss ENT: Negative for stridor Respiratory: Negative for cough or hemoptysis All other systems reviewed and are negative MENTAL STATUS EXAMINATION General Appearance: Dressed appropriately Behavior: Irritable, cooperative Mood: "okay" Affect and affective range: Congruent with stated mood Thought Process: disorganized Speech: nonsensical Thought Content: Suicidal Ideation: Denies SI Homicidal Ideation: Denies HI Hallucinations: Denies Delusions: Paranoid Insight and Judgment: Limited Memory/Cognition: Impaired Attention: Normal Assessment Bipolar Disorder, Current Episode [facility] Treatment Plan Patient will be admitted for inpatient psychiatric evaluation, medication adjustment and close monitoring The patient's behavior, mood, sleep and appetite will be closely monitored. Patient will be enrolled in individual and group therapeutic sessions and encouraged to attend. Patient will be provided with a safe and structured environment. Patient's physical health needs will be addressed by the Hospitalist. Hospitalist Consulted Labs including CBC, CMP, Lipid profile and Hemoglobin A1C ordered Social Assessment will be completed and the Oil Filters Inspector will work with patient and family to ensure a suitable and safe disposition Medication adjustment will be made as clinically indicated Decreased nighttime seroquel from 150mg to 100 Increased risperidone 0.5mg po daily Usual Wellness [facility]/Preservation: - Start Trazodone 50 mg po QHS & 50 mg po QHS PRN between 10 PM & 2 AM for insomnia - Start Melatonin 5 mg po QHS to promote circadian rhythm The patient agreed on the treatment plan, understood the risk, benefit, alternative treatment, potential consequence of no treatment, and gave informed consent. Estimated Length of stay (2 days) Outpatient psychiatry upon discharge Medications and Allergies Allergies Allergy/AdvReac Type Severity Reaction Status Date / Time divalproex sodium Allergy Hives Verified 02/02/13 15:16 [From Depakote] Interferons Allergy Hives Verified 02/02/13 15:15 latex Allergy Hives Verified 02/02/13 15:17 levofloxacin [From Levaquin] Allergy Unknown Unverified 10/06/19 11:18 mupirocin [From Bactroban] Allergy Hives Verified 02/02/13 15:17 mupirocin calcium Allergy Hives Verified 02/02/13 15:17 [From Bactroban] Penicillins Allergy Hives Verified 02/02/13 15:16 Sulfa (Sulfonamide Allergy Unknown Verified 10/11/19 07:23 Antibiotics) lithium AdvReac Unknown Verified 10/11/19 07:24 mycins Allergy Hives Uncoded 02/02/13 15:17 Home Medications Medication Instructions Recorded Confirmed Last Taken Type Furosemide [Lasix TAB] 20 mg PO [facility] 10/06/19 10/06/19 Unknown History Nitrofurantoin Macrocrystal 100 mg PO [facility] 10/06/19 10/06/19 Unknown History [Nitrofurantoin] OXcarbazepine [Trileptal] 600 mg PO [facility] 10/06/19 10/06/19 Unknown History Potassium Chloride [K-Dur] 10 meq PO [facility] 10/06/19 10/06/19 Unknown History QUEtiapine [SEROquel] 200 mg PO [facility] 10/06/19 10/06/19 Unknown History Tetracycline HCl 250 mg PO [facility] 10/06/19 10/06/19 Unknown History busPIRone [Buspar] 5 mg PO [facility] 10/06/19 10/06/19 Unknown History hydrOXYzine HCL [Atarax] 25 mg PO [facility] 10/06/19 10/06/19 Unknown History lamoTRIgine [LaMICtal] 100 mg PO [facility] 10/06/19 10/06/19 Unknown History Active Meds: Active Medications Buspirone HCl (Buspar) 15 mg PO BID [facility] Last Admin: 10/13/19 21:40 Dose: 15 mg Documented by: Clonazepam (Klonopin) 0.5 mg PO BID [facility] Stop: 10/14/19 14:00 Last Admin: 10/13/19 21:41 Dose: 0.5 mg Documented by: Furosemide (Lasix) 20 mg PO UNK [facility] Hydroxyzine Pamoate (Vistaril) 25 mg PO Q6H PRN PRN Reason: Anxiety Last Admin: 10/11/19 21:34 Dose: 25 mg Documented by: Lamotrigine (Lamictal) 100 mg PO DAILY [facility] Last Admin: 10/13/19 09:07 Dose: 100 mg Documented by: Lorazepam (Ativan) 2 mg IM Q4HR PRN PRN Reason: Agitation Last Admin: 10/13/19 05:01 Dose: 2 mg Documented by: Oxcarbazepine (Trileptal) 600 mg PO BID [facility] Last Admin: 10/13/19 21:41 Dose: 600 mg Documented by: Oxycodone/Acetaminophen (Percocet 5/325) 1 tab PO Q6H PRN PRN Reason: Pain, Moderate (4-6) Last Admin: 10/14/19 00:52 Dose: 1 tab Documented by: Potassium Chloride (K-Dur) 10 meq PO DAILY [facility] Last Admin: 10/13/19 09:07 Dose: 10 meq Documented by: Quetiapine Fumarate (Seroquel) 100 mg PO QHS [facility] Last Admin: 10/13/19 21:40 Dose: 100 mg Documented by: Quetiapine Fumarate (Seroquel) 50 mg PO QHS [facility] Last Admin: 10/13/19 21:41 Dose: 50 mg Documented by: Risperidone (Risperdal) 0.25 mg PO DAILY [facility] Last Admin: 10/13/19 11:09 Dose: Not Given Documented by: Results - Results Labs/Vitals: Laboratory Last Values WBC 9.0 K/mm3 (4.5-11.0) 10/12/19 05:07 RBC 4.23 M/mm3 (3.65-5.03) 10/12/19 05:07 Hgb 12.7 gm/dl (10.1-14.3) 10/12/19 05:07 Hct 37.4 % (30.3-42.9) 10/12/19 05:07 MCV 88 fl (79-97) 10/12/19 05:07 MCH 30 pg (28-32) 10/12/19 05:07 MCHC 34 % (30-34) 10/12/19 05:07 RDW 14.2 % (13.2-15.2) 10/12/19 05:07 Plt Count 291 K/mm3 (140-440) 10/12/19 05:07 Lymph % (Auto) 34.2 % (13.4-35.0) 10/12/19 05:07 [place] % (Auto) 7.4 % (0.0-7.3) H 10/12/19 05:07 Eos % (Auto) 5.8 % (0.0-4.3) H 10/12/19 05:07 Baso % (Auto) 1.1 % (0.0-1.8) 10/12/19 05:07 Lymph # 3.1 K/mm3 (1.2-5.4) 10/12/19 05:07 [place] # 0.7 K/mm3 (0.0-0.8) 10/12/19 05:07 Eos # 0.5 K/mm3 (0.0-0.4) H 10/12/19 05:07 Baso # 0.1 K/mm3 (0.0-0.1) 10/12/19 05:07 Seg Neutrophils % 51.5 % (40.0-70.0) 10/12/19 05:07 Seg Neutrophils # 4.6 K/mm3 (1.8-7.7) 10/12/19 05:07 Sodium 135 mmol/L (137-145) L 10/12/19 05:07 Potassium 4.6 mmol/L (3.6-5.0) 10/12/19 05:07 Chloride 96.9 mmol/L (98-107) L 10/12/19 05:07 Carbon Dioxide 27 mmol/L (22-30) 10/12/19 05:07 Anion Gap 16 mmol/L 10/12/19 05:07 BUN 12 mg/dL (7-17) 10/12/19 05:07 Creatinine 0.5 mg/dL (0.6-1.2) L 10/12/19 05:07 Estimated GFR > 60 ml/min 08/17/20 05:07 BUN/Creatinine Ratio 24 % 10/12/19 05:07 Glucose 117 mg/dL (65-100) H 10/12/19 05:07 POC Glucose 103 (70-105) 10/11/19 06:43 Hemoglobin A1c 5.3 % (4-6) 10/09/19 16:24 Osmolality 275 Mosm/kg 10/12/19 Unknown Calcium 9.5 mg/dL (8.4-10.2) 10/12/19 05:07 Total Bilirubin 0.40 mg/dL (0.1-1.2) 10/12/19 05:07 AST 22 units/L (5-40) 10/12/19 05:07 ALT 21 units/L (7-56) 10/12/19 05:07 Alkaline Phosphatase 93 units/L (35-129) 10/12/19 05:07 Total Protein 6.5 g/dL (6.3-8.2) 10/12/19 05:07 Albumin 4.0 g/dL (3.9-5) 10/12/19 05:07 Albumin/Globulin Ratio 1.6 % 10/12/19 05:07 Triglycerides 67 mg/dL (2-149) 10/09/19 16:24 Cholesterol 172 mg/dL (50-199) 10/09/19 16:24 LDL Cholesterol Direct 99 mg/dL (50-130) 10/09/19 16:24 HDL Cholesterol 68 mg/dL (40-59) H 10/09/19 16:24 Cholesterol/HDL Ratio 2.52 % 10/09/19 16:24 Procalcitonin < 0.05 ng/mL (<0.15) 10/13/19 07:55 TSH 1.200 mlU/mL (0.270-4.200) 10/09/19 16:24 Urine Color Yellow (Yellow) 10/12/19 05:29 Urine Turbidity Clear (Clear) 10/12/19 05:29 Urine pH 6.0 (5.0-7.0) 10/12/19 05:29 Ur Specific [place] 1.018 (1.003-1.030) 10/12/19 05:29 Urine Protein <15 mg/dl mg/dL (Negative) 10/12/19 05:29 Urine Glucose (UA) Neg mg/dL (Negative) 10/12/19 05:29 Urine Ketones Tr mg/dL (Negative) 10/12/19 05:29 Urine Blood Neg (Negative) 10/12/19 05:29 Urine Nitrite Neg (Negative) 10/12/19 05:29 Urine Bilirubin Neg (Negative) 10/12/19 05:29 Urine Urobilinogen < 2.0 mg/dL (<2.0) 10/12/19 05:29 Ur Leukocyte Esterase Tr (Negative) 10/12/19 05:29 Urine WBC (Auto) 6.0 /HPF (0.0-6.0) 10/12/19 05:29 Urine RBC (Auto) 3.0 /HPF (0.0-6.0) 10/12/19 05:29 U Epithel Cells (Auto) < 1.0 /HPF (0-13.0) 10/12/19 05:29 Urine Bacteria (Auto) 1+ /HPF (Negative) 10/12/19 05:29 Urine Mucus Few /HPF 10/12/19 05:29 Urine Osmolality 607 Mosm/kg 10/12/19 05:29 Last Vital Signs Temp 97.4 F L 10/13/19 19:36 Pulse 95 H 10/13/19 19:36 Resp 16 10/13/19 19:36 BP 139/79 10/13/19 19:36 Pulse Ox 98 10/13/19 19:36
[2019-10-14] MEDS ORDERED: risperiDONE 0.25 MG TAB PO SCH (10:00)
[2019-10-14] MEDS: busPIRone 10 MG TAB PO SCH ×2 (10:38→21:20)
[2019-10-14] MEDS: POTASSIUM CHLORIDE ER 10 MEQ TAB PO SCH (10:38)
[2019-10-14] MEDS: clonazePAM 0.5 MG TAB PO SCH ×2 (10:38→21:20)
[2019-10-14] MEDS: lamoTRIgine 100 MG TAB PO SCH (10:39)
[2019-10-14] MEDS: QUEtiapine 100 MG TAB PO SCH ×2 (11:09→21:21)
[2019-10-14] MEDS: OXcarbazepine 300 MG TAB PO SCH ×2 (11:09→21:00)
--- NOTE | 2019-10-15 08:49 | Progress Note ---
Subjective Date of service: 10/15/19 Principal diagnosis: Severe manic bipolar 1 disorder with psychotic behavior Subjective Comment: The patient's medical record was reviewed and the patient's progress was discussed with the nursing staff. The nurse note states the is alert and oriented to person and place, easily irritable, angry affect with depressed mood, calm and cooperative, During my interview with the patient today, the patient is lying in bed. She is asleep, but easily arouses. She is much more calm today than yesterday. She is still easily irritable. She is not as hyperverbal. She is a/o x 2. The patient verbalizes being "sleepy and cold" when asked how she was feeling. She then says "I don't like to be awakened out of my sleep." She says she "slept good," when asked how'd her night go. The patient then replied "I slept 12 hours last night." She denies SI/HI or hallucinations of any kind. The reason for continued inpatient treatment: The patient is still having episodes of irritability and anger. Her Seroquel was increased to a high dose y . She appears to be improving from it, but will need to monitor the patient longer for overall effectiveness and possible side effects and adverse reactions. Will continue to stabilize in order to ensue a safe discharge. REVIEW OF SYSTEMS Constitutional: Negative for weight loss ENT: Negative for stridor Respiratory: Negative for cough or hemoptysis All other systems reviewed and are negative MENTAL STATUS EXAMINATION General Appearance: Dressed appropriately Behavior: Easily irritable, cooperative Mood: Affect and affective range: Congruent with stated mood Thought Process: Tangential Speech: nonsensical Thought Content: Suicidal Ideation: Denies SI Homicidal Ideation: Denies HI Hallucinations: Denies Delusions: None elicited today Insight and Judgment: Limited Memory/Cognition: Impaired Attention: Normal Assessment Bipolar Disorder, Current Episode [facility] Treatment Plan Patient will be admitted for inpatient psychiatric evaluation, medication adjustment and close monitoring The patient's behavior, mood, sleep and appetite will be closely monitored. Patient will be enrolled in individual and group therapeutic sessions and encouraged to attend. Patient will be provided with a safe and structured environment. Patient's physical health needs will be addressed by the Hospitalist. Hospitalist Consulted Labs including CBC, CMP, Lipid profile and Hemoglobin A1C ordered Social Assessment will be completed and the Amphibian Crewmember will work with patient and family to ensure a suitable and safe disposition Medication adjustment will be made as clinically indicated Increased Seroquel to 300mg po BID yesterday Restarted Klonopoin 0.5mg po BID yesterday Usual Wellness [facility]/Preservation: - Start Trazodone 50 mg po QHS & 50 mg po QHS PRN between 10 PM & 2 AM for insomnia - Start Melatonin 5 mg po QHS to promote circadian rhythm The patient agreed on the treatment plan, understood the risk, benefit, alternative treatment, potential consequence of no treatment, and gave informed consent. Estimated Length of stay (2 days) Outpatient psychiatry upon discharge Medications and Allergies Allergies Allergy/AdvReac Type Severity Reaction Status Date / Time divalproex sodium Allergy Hives Verified 02/02/13 15:16 [From Depakote] Interferons Allergy Hives Verified 02/02/13 15:15 latex Allergy Hives Verified 02/02/13 15:17 levofloxacin [From Levaquin] Allergy Unknown Unverified 10/06/19 11:18 mupirocin [From Bactroban] Allergy Hives Verified 02/02/13 15:17 mupirocin calcium Allergy Hives Verified 02/02/13 15:17 [From Bactroban] Penicillins Allergy Hives Verified 02/02/13 15:16 Sulfa (Sulfonamide Allergy Unknown Verified 10/11/19 07:23 Antibiotics) lithium AdvReac Unknown Verified 10/11/19 07:24 mycins Allergy Hives Uncoded 02/02/13 15:17 Home Medications Medication Instructions Recorded Confirmed Last Taken Type Furosemide [Lasix TAB] 20 mg PO [facility] 10/06/19 10/06/19 Unknown History Nitrofurantoin Macrocrystal 100 mg PO [facility] 10/06/19 10/06/19 Unknown History [Nitrofurantoin] OXcarbazepine [Trileptal] 600 mg PO K 10/06/19 10/06/19 Unknown History Potassium Chloride [K-Dur] 10 meq PO K 10/06/19 10/06/19 Unknown History QUEtiapine [SEROquel] 200 mg PO UNK 10/06/19 10/06/19 Unknown History Tetracycline HCl 250 mg PO K 10/06/19 10/06/19 Unknown History busPIRone [Buspar] 5 mg PO [facility] 10/06/19 10/06/19 Unknown History hydrOXYzine HCL [Atarax] 25 mg PO [facility] 10/06/19 10/06/19 Unknown History lamoTRIgine [LaMICtal] 100 mg PO [facility] 10/06/19 10/06/19 Unknown History Active Meds: Active Medications Buspirone HCl (Buspar) 15 mg PO BID [facility] Last Admin: 10/14/19 21:20 Dose: 15 mg Documented by: Clonazepam (Klonopin) 0.5 mg PO BID [facility] Last Admin: 10/14/19 21:20 Dose: 0.5 mg Documented by: Furosemide (Lasix) 20 mg PO [facility] Hydroxyzine Pamoate (Vistaril) 25 mg PO Q6H PRN PRN Reason: Anxiety Last Admin: 10/11/19 21:34 Dose: 25 mg Documented by: Lamotrigine (Lamictal) 100 mg PO DAILY [facility] Last Admin: 10/14/19 10:39 Dose: 100 mg Documented by: Lorazepam (Ativan) 2 mg IM Q4HR PRN PRN Reason: Agitation Last Admin: 10/13/19 05:01 Dose: 2 mg Documented by: Oxcarbazepine (Trileptal) 600 mg PO BID [facility] Last Admin: 10/14/19 21:00 Dose: 600 mg Documented by: Oxycodone/Acetaminophen (Percocet 5/325) 1 tab PO Q6H PRN PRN Reason: Pain, Moderate (4-6) Last Admin: 10/14/19 21:18 Dose: 1 tab Documented by: Potassium Chloride (K-Dur) 10 meq PO DAILY [facility] Last Admin: 10/14/19 10:38 Dose: 10 meq Documented by: Quetiapine Fumarate (Seroquel) 300 mg PO BID [facility] Last Admin: 10/14/19 21:21 Dose: 300 mg Documented by: Risperidone (Risperdal) 0.5 mg PO DAILY [facility] Last Admin: 10/14/19 10:38 Dose: 0.5 mg Documented by: Results - Results Labs/Vitals: Laboratory Last Values WBC 9.0 K/mm3 (4.5-11.0) 10/12/19 05:07 RBC 4.23 M/mm3 (3.65-5.03) 10/12/19 05:07 Hgb 12.7 gm/dl (10.1-14.3) 10/12/19 05:07 Hct 37.4 % (30.3-42.9) 10/12/19 05:07 MCV 88 fl (79-97) 10/12/19 05:07 MCH 30 pg (28-32) 10/12/19 05:07 MCHC 34 % (30-34) 10/12/19 05:07 RDW 14.2 % (13.2-15.2) 10/12/19 05:07 Plt Count 291 K/mm3 (140-440) 10/12/19 05:07 Lymph % (Auto) 34.2 % (13.4-35.0) 10/12/19 05:07 [place] % (Auto) 7.4 % (0.0-7.3) H 10/12/19 05:07 Eos % (Auto) 5.8 % (0.0-4.3) H 10/12/19 05:07 Baso % (Auto) 1.1 % (0.0-1.8) 10/12/19 05:07 Lymph # 3.1 K/mm3 (1.2-5.4) 10/12/19 05:07 [place] # 0.7 K/mm3 (0.0-0.8) 10/12/19 05:07 Eos # 0.5 K/mm3 (0.0-0.4) H 10/12/19 05:07 Baso # 0.1 K/mm3 (0.0-0.1) 10/12/19 05:07 Seg Neutrophils % 51.5 % (40.0-70.0) 10/12/19 05:07 Seg Neutrophils # 4.6 K/mm3 (1.8-7.7) 10/12/19 05:07 Sodium 135 mmol/L (137-145) L 10/12/19 05:07 Potassium 4.6 mmol/L (3.6-5.0) 10/12/19 05:07 Chloride 96.9 mmol/L (98-107) L 10/12/19 05:07 Carbon Dioxide 27 mmol/L (22-30) 10/12/19 05:07 Anion Gap 16 mmol/L 10/12/19 05:07 BUN 12 mg/dL (7-17) 10/12/19 05:07 Creatinine 0.5 mg/dL (0.6-1.2) L 10/12/19 05:07 Estimated GFR > 60 ml/min 10/12/19 05:07 BUN/Creatinine Ratio 24 % 10/12/19 05:07 Glucose 117 mg/dL (65-100) H 10/12/19 05:07 POC Glucose 103 (70-105) 10/11/19 06:43 Hemoglobin A1c 5.3 % (4-6) 10/09/19 16:24 Osmolality 275 Mosm/kg 10/12/19 Unknown Calcium 9.5 mg/dL (8.4-10.2) 10/12/19 05:07 Total Bilirubin 0.40 mg/dL (0.1-1.2) 10/12/19 05:07 AST 22 units/L (5-40) 10/12/19 05:07 ALT 21 units/L (7-56) 10/12/19 05:07 Alkaline Phosphatase 93 units/L (35-129) 10/12/19 05:07 Total Protein 6.5 g/dL (6.3-8.2) 10/12/19 05:07 Albumin 4.0 g/dL (3.9-5) 10/12/19 05:07 Albumin/Globulin Ratio 1.6 % 10/12/19 05:07 Triglycerides 67 mg/dL (2-149) 10/09/19 16:24 Cholesterol 172 mg/dL (50-199) 10/09/19 16:24 LDL Cholesterol Direct 99 mg/dL (50-130) 10/09/19 16:24 HDL Cholesterol 68 mg/dL (40-59) H 10/09/19 16:24 Cholesterol/HDL Ratio 2.52 % 10/09/19 16:24 Procalcitonin < 0.05 ng/mL (<0.15) 10/13/19 07:55 TSH 1.200 mlU/mL (0.270-4.200) 10/09/19 16:24 Urine Color Yellow (Yellow) 10/12/19 05:29 Urine Turbidity Clear (Clear) 10/12/19 05:29 Urine pH 6.0 (5.0-7.0) 10/12/19 05:29 Ur Specific [place] 1.018 (1.003-1.030) 10/12/19 05:29 Urine Protein <15 mg/dl mg/dL (Negative) 10/12/19 05:29 Urine Glucose (UA) Neg mg/dL (Negative) 10/12/19 05:29 Urine Ketones Tr mg/dL (Negative) 10/12/19 05:29 Urine Blood Neg (Negative) 10/12/19 05:29 Urine Nitrite Neg (Negative) 10/12/19 05:29 Urine Bilirubin Neg (Negative) 10/12/19 05:29 Urine Urobilinogen < 2.0 mg/dL (<2.0) 10/12/19 05:29 Ur Leukocyte Esterase Tr (Negative) 10/12/19 05:29 Urine WBC (Auto) 6.0 /HPF (0.0-6.0) 10/12/19 05:29 Urine RBC (Auto) 3.0 /HPF (0.0-6.0) 10/12/19 05:29 U Epithel Cells (Auto) < 1.0 /HPF (0-13.0) 10/12/19 05:29 Urine Bacteria (Auto) 1+ /HPF (Negative) 10/12/19 05:29 Urine Mucus Few /HPF 10/12/19 05:29 Urine Osmolality 607 Mosm/kg 10/12/19 05:29 Last Vital Signs Temp 97.5 F L 10/14/19 22:00 Pulse 97 H 10/14/19 22:00 Resp 18 10/14/19 22:00 BP 105/57 10/14/19 22:00 Pulse Ox 100 10/14/19 22:00
[2019-10-15] MEDS ORDERED: OXcarbazepine 300 MG TAB PO SCH (10:00)
[2019-10-15] MEDS ORDERED: lamoTRIgine 25 MG TAB PO SCH (10:00)
[2019-10-15] MEDS: lamoTRIgine 100 MG TAB PO SCH (10:39)
[2019-10-15] MEDS: OXcarbazepine 300 MG TAB PO SCH ×2 (10:39→20:59)
[2019-10-15] MEDS: clonazePAM 0.5 MG TAB PO SCH ×2 (10:39→20:59)
[2019-10-15] MEDS: busPIRone 10 MG TAB PO SCH ×2 (10:39→21:00)
[2019-10-15] MEDS: POTASSIUM CHLORIDE ER 10 MEQ TAB PO SCH (10:40)
[2019-10-15] MEDS: QUEtiapine 100 MG TAB PO SCH ×2 (10:40→20:59)
--- NOTE | 2019-10-15 11:33 | Progress Note ---
Hospitalist Physical - Constitutional Vitals: Temp Pulse Resp BP Pulse Ox 98.0 F 97 H 18 113/59 100 10/15/19 09:28 10/14/19 22:00 10/15/19 09:28 10/15/19 09:28 10/14/19 22:00 General appearance: Present: no acute distress, well-nourished Results - Labs CBC & Chem 7: 10/12/19 05:07 10/12/19 05:07 Labs: Laboratory Last Values WBC 9.0 K/mm3 (4.5-11.0) 10/12/19 05:07 RBC 4.23 M/mm3 (3.65-5.03) 10/12/19 05:07 Hgb 12.7 gm/dl (10.1-14.3) 10/12/19 05:07 Hct 37.4 % (30.3-42.9) 10/12/19 05:07 MCV 88 fl (79-97) 10/12/19 05:07 MCH 30 pg (28-32) 10/12/19 05:07 MCHC 34 % (30-34) 10/12/19 05:07 RDW 14.2 % (13.2-15.2) 10/12/19 05:07 Plt Count 291 K/mm3 (140-440) 10/12/19 05:07 Lymph % (Auto) 34.2 % (13.4-35.0) 10/12/19 05:07 [place] % (Auto) 7.4 % (0.0-7.3) H 10/12/19 05:07 Eos % (Auto) 5.8 % (0.0-4.3) H 10/12/19 05:07 Baso % (Auto) 1.1 % (0.0-1.8) 10/12/19 05:07 Lymph # 3.1 K/mm3 (1.2-5.4) 10/12/19 05:07 Hughes # 0.7 K/mm3 (0.0-0.8) 10/12/19 05:07 Eos # 0.5 K/mm3 (0.0-0.4) H 10/12/19 05:07 Baso # 0.1 K/mm3 (0.0-0.1) 10/12/19 05:07 Seg Neutrophils % 51.5 % (40.0-70.0) 10/12/19 05:07 Seg Neutrophils # 4.6 K/mm3 (1.8-7.7) 10/12/19 05:07 Sodium 135 mmol/L (137-145) L 10/12/19 05:07 Potassium 4.6 mmol/L (3.6-5.0) 10/12/19 05:07 Chloride 96.9 mmol/L (98-107) L 10/12/19 05:07 Carbon Dioxide 27 mmol/L (22-30) 10/12/19 05:07 Anion Gap 16 mmol/L 10/12/19 05:07 BUN 12 mg/dL (7-17) 10/12/19 05:07 Creatinine 0.5 mg/dL (0.6-1.2) L 10/12/19 05:07 Estimated GFR > 60 ml/min 10/12/19 05:07 BUN/Creatinine Ratio 24 % 10/12/19 05:07 Glucose 117 mg/dL (65-100) H 10/12/19 05:07 POC Glucose 103 (70-105) 10/11/19 06:43 Hemoglobin A1c 5.3 % (4-6) 10/09/19 16:24 Osmolality 275 Mosm/kg 10/12/19 Unknown Calcium 9.5 mg/dL (8.4-10.2) 10/12/19 05:07 Total Bilirubin 0.40 mg/dL (0.1-1.2) 10/12/19 05:07 AST 22 units/L (5-40) 10/12/19 05:07 ALT 21 units/L (7-56) 10/12/19 05:07 Alkaline Phosphatase 93 units/L (35-129) 10/12/19 05:07 Total Protein 6.5 g/dL (6.3-8.2) 10/12/19 05:07 Albumin 4.0 g/dL (3.9-5) 10/12/19 05:07 Albumin/Globulin Ratio 1.6 % 10/12/19 05:07 Triglycerides 67 mg/dL (2-149) 10/09/19 16:24 Cholesterol 172 mg/dL (50-199) 10/09/19 16:24 LDL Cholesterol Direct 99 mg/dL (50-130) 10/09/19 16:24 HDL Cholesterol 68 mg/dL (40-59) H 10/09/19 16:24 Cholesterol/HDL Ratio 2.52 % 10/09/19 16:24 Procalcitonin < 0.05 ng/mL (<0.15) 10/13/19 07:55 TSH 1.200 mlU/mL (0.270-4.200) 10/09/19 16:24 Urine Color Yellow (Yellow) 10/12/19 05:29 Urine Turbidity Clear (Clear) 10/12/19 05:29 Urine pH 6.0 (5.0-7.0) 10/12/19 05:29 Ur Specific [place] 1.018 (1.003-1.030) 10/12/19 05:29 Urine Protein <15 mg/dl mg/dL (Negative) 10/12/19 05:29 Urine Glucose (UA) Neg mg/dL (Negative) 10/12/19 05:29 Urine Ketones Tr mg/dL (Negative) 10/12/19 05:29 Urine Blood Neg (Negative) 10/12/19 05:29 Urine Nitrite Neg (Negative) 10/12/19 05:29 Urine Bilirubin Neg (Negative) 10/12/19 05:29 Urine Urobilinogen < 2.0 mg/dL (<2.0) 10/12/19 05:29 Ur Leukocyte Esterase Tr (Negative) 10/12/19 05:29 Urine WBC (Auto) 6.0 /HPF (0.0-6.0) 10/12/19 05:29 Urine RBC (Auto) 3.0 /HPF (0.0-6.0) 10/12/19 05:29 U Epithel Cells (Auto) < 1.0 /HPF (0-13.0) 10/12/19 05:29 Urine Bacteria (Auto) 1+ /HPF (Negative) 10/12/19 05:29 Urine Mucus Few /HPF 10/12/19 05:29 Urine Osmolality 607 Mosm/kg 10/12/19 05:29 Singletary/IV: Voiding Method Toilet Active Medications - Current Medications Current Medications: Generic Name Dose Route Start Last Admin Trade Name Freq PRN Reason Stop Dose Admin Buspirone HCl 15 mg 10/13/19 10:00 10/15/19 10:39 Buspar PO 15 mg BID JAYSON Administration Clonazepam 0.5 mg 10/12/19 10:00 10/15/19 10:39 Klonopin PO 0.5 mg BID JAYSON Administration Furosemide 20 mg 10/07/19 08:00 Lasix PO UNK JAYSON Hydroxyzine Pamoate 25 mg 10/07/19 13:28 10/11/19 21:34 Vistaril PO 25 mg Q6H PRN Administration Anxiety Lamotrigine 100 mg 10/07/19 14:00 10/15/19 10:39 Lamictal PO 100 mg DAILY JAYSON Administration Lorazepam 2 mg 10/06/19 14:00 10/13/19 05:01 Ativan IM 2 mg Q4HR PRN Administration Agitation Oxcarbazepine 600 mg 10/14/19 11:00 10/15/19 10:39 Trileptal PO 600 mg BID JAYSON Administration Oxycodone/Acetaminophen 1 tab 10/10/19 05:43 10/14/19 21:18 Percocet 5/325 PO 1 tab Q6H PRN Administration Pain, Moderate (4-6) Potassium Chloride 10 meq 10/07/19 14:00 10/15/19 10:40 K-Dur PO 10 meq DAILY JAYSON Administration Quetiapine Fumarate 300 mg 10/14/19 11:00 10/15/19 10:40 Seroquel PO 300 mg BID JAYSON Administration Nutrition/Malnutrition Assess - Dietary Evaluation Nutrition/Malnutrition Findings: Nutrition Notes Start: 10/08/19 15:08 Freq: Status: Active Protocol: Document 10/12/19 11:17 [facility] (Rec: 10/12/19 11:21 [facility] [id number]) Nutrition Notes Initial or Follow up Reassessment Other Pertinent Diagnosis Manic bipolar disorder w/ psychotic behavior, R ankle and L foot wounds Current Diet FL + Ensure Enlive BID Labs/Tests Reviewed Pertinent Medications Reviewed Height 4 ft 11 in Weight 65.68 kg [place] Body Weight (kg) 43.18 BMI 29.2 Weight Status Overweight Subjective/Other Information Pt consuming 100% meals since diet advanced to FL on 10/07. PO intakes wer very poor while she received Regular diet (-10/06). She is consuming at least 50% of ONS as well. Unable to reach RN via phone at 11:12. Pt remains agitated . Burn Absent Trauma Absent Current % PO Good (75-100%) #1 Nutrition Diagnosis Increased nutrient needs ( specify in comment below) Diagnosis Progress(for reassessment Continues documentation) Is patient on ventilator? No Is Patient Ambulatory and/or Out of Bed Yes [facility] [ [id number] [id number]] Additional Notes Protein: 83-99g (1.25-1.5g/kg) Fluid: 1ml/kcal Nutrition Intervention Change Diet Order: Continue current diet order Add Supplement/Snack (indicate name/kcal Ensure Enlive BID /protein ) Provides kCal: 700 Provides Protein (gm) 40 Goal #1 PO intake of meals plus ONS to meet at least 75% energy and pro needs Goal #2 Wound healing Follow-Up By: 10/19/19 Additional Comments F/U: intakes (meals/ONS), wt
--- NOTE | 2019-10-16 07:30 | Progress Note ---
Subjective Date of service: 10/16/19 Principal diagnosis: Severe manic bipolar 1 disorder with psychotic behavior Subjective Comment: Psych Nurse: Patient has been irritable and demanding most of the day. She requested phone call and was observed hiding, turned face to corner and called unit. Patient thought she was speaking to the Software Project Manager and told this greeting card writer, "They are holding me against my will. Nothing is wrong with me. My sister is supposed to be caring for me and has all of my money. I have $200,000 and I need help." Patient refused breakfast but ate lunch and dinner. Patient was compliant with medication. She was instructed about losing phone privileged and ahe verbalized understanding. Will continue to monitor for safety. Psych Progress Patient seen in her room, laying in bed and still paranoid about the idea of being a psychiatric facility when she has not mental health issues, says shes earle and would [facility], blames coming here on family members. Patient has been compliant with medications, Reason for inpatient psychiatric hospitalization: Improving irritability and compliance with medications. Will plan for safety discharge today MENTAL STATUS EXAMINATION General Appearance and Behavior: Age appropriate, good hygiene, wearing appropriate clothes, lying in bed, good eye contact, cooperative polite with questioning. Cooperation: engaged and participated Psychomotor Behavior: unremarkable and within normal limits Mood: good but wants to leave here Affect and affective range: irritability Thought Process: Pressured Thought Content: Paranoid Speech: pressured, loud volume Intellectual Functioning: Average Suicidal Ideation: Denies SI Homicidal Ideation: Denies HI Impulse Control: Impaired Insight and Judgment: Limited insight and judgment Memory: unaccessible Attention: Divided attention impaired Orientation: Alert, oriented Assessment and Plan Psychiatric problem (1) Severe manic bipolar 1 disorder with psychotic behavior Current Visit: Yes Status: Acute Treatment Plan Pt currenlty refusing meds Patient will be admitted for inpatient psychiatric evaluation, medication adjustment and close monitoring The patient's behavior, mood, sleep and appetite will be closely monitored. Patient will be enrolled in individual and group therapeutic sessions and encouraged to attend. Patient will be provided with a safe and structured environment. Patient's physical health needs will be addressed by the Hospitalist. Baltazar dunn Consulted Labs including CBC, CMP, Lipid profile and Hemoglobin A1C ordered Social Assessment will be completed and the Marble Supervisor will work with patient and family to ensure a suitable and safe disposition Medication adjustment will be made as clinically indicated Usual Wellness Anglican/Preservation: - Start Trazodone 50 mg po QHS & 50 mg po QHS PRN between 10 PM & 2 AM for ins omnia - Start Melatonin 5 mg po QHS to promote circadian rhythm - Start Hoffman-3 for brain health, reduce impulsivity, and as adjunctive treatment for mood disorder, continue upon discharge given overall benefits. - Start B1 prophylaxis with 200 mg po for 5 days The patient agreed on the treatment plan, understood the risk, benefit, alternative treatment, potential consequence of no treatment, and gave informed consent. Initial Certification Inpatient psych services: I certify that the inpatient psychiatric services are required for treatment that could reasonably be expected to improve the patient's condition. Assessment and Plan - Patient Problems (1) Severe manic bipolar 1 disorder with psychotic behavior Current Visit: Yes Status: Acute Medications and Allergies Allergies Allergy/AdvReac Type Severity Reaction Status Date / Time divalproex sodium Allergy Hives Verified 02/02/13 15:16 [From Depakote] Interferons Allergy Hives Verified 02/02/13 15:15 latex Allergy Hives Verified 02/02/13 15:17 levofloxacin [From Levaquin] Allergy Unknown Unverified 10/06/19 11:18 mupirocin [From Bactroban] Allergy Hives Verified 02/02/13 15:17 mupirocin calcium Allergy Hives Verified 02/02/13 15:17 [From Bactroban] Penicillins Allergy Hives Verified 02/02/13 15:16 Sulfa (Sulfonamide Allergy Unknown Verified 10/11/19 07:23 Antibiotics) lithium AdvReac Unknown Verified 10/11/19 07:24 mycins Allergy Hives Uncoded 02/02/13 15:17 Home Medications Medication Instructions Recorded Confirmed Last Taken Type Furosemide [Lasix TAB] 20 mg PO K 10/06/19 10/06/19 Unknown History Nitrofurantoin Macrocrystal 100 mg PO [facility] 10/06/19 10/06/19 Unknown History [Nitrofurantoin] OXcarbazepine [Trileptal] 600 mg PO K 10/06/19 10/06/19 Unknown History Potassium Chloride [K-Dur] 10 meq PO K 10/06/19 10/06/19 Unknown History QUEtiapine [SEROquel] 200 mg PO [facility] 10/06/19 10/06/19 Unknown History Tetracycline HCl 250 mg PO K 10/06/19 10/06/19 Unknown History busPIRone [Buspar] 5 mg PO K 10/06/19 10/06/19 Unknown History hydrOXYzine HCL [Atarax] 25 mg PO K 10/06/19 10/06/19 Unknown History lamoTRIgine [LaMICtal] 100 mg PO [facility] 10/06/19 10/06/19 Unknown History Active Meds: Active Medications Buspirone HCl (Buspar) 15 mg PO BID [facility] Last Admin: 10/15/19 21:00 Dose: 15 mg Documented by: Clonazepam (Klonopin) 0.5 mg PO BID [facility] Last Admin: 10/15/19 20:59 Dose: 0.5 mg Documented by: Furosemide (Lasix) 20 mg PO K [facility] Hydroxyzine Pamoate (Vistaril) 25 mg PO Q6H PRN PRN Reason: Anxiety Last Admin: 10/11/19 21:34 Dose: 25 mg Documented by: Lamotrigine (Lamictal) 100 mg PO DAILY [facility] Last Admin: 10/15/19 10:39 Dose: 100 mg Documented by: Lorazepam (Ativan) 2 mg IM Q4HR PRN PRN Reason: Agitation Last Admin: 10/13/19 05:01 Dose: 2 mg Documented by: Oxcarbazepine (Trileptal) 600 mg PO BID [facility] Last Admin: 10/15/19 20:59 Dose: 600 mg Documented by: Oxycodone/Acetaminophen (Percocet 5/325) 1 tab PO Q6H PRN PRN Reason: Pain, Moderate (4-6) Last Admin: 10/14/19 21:18 Dose: 1 tab Documented by: Potassium Chloride (K-Dur) 10 meq PO DAILY [facility] Last Admin: 10/15/19 10:40 Dose: 10 meq Documented by: Quetiapine Fumarate (Seroquel) 300 mg PO BID [facility] Last Admin: 10/15/19 20:59 Dose: 300 mg Documented by: Results - Results Labs/Vitals: Laboratory Last Values WBC 9.0 K/mm3 (4.5-11.0) 10/12/19 05:07 RBC 4.23 M/mm3 (3.65-5.03) 10/12/19 05:07 Hgb 12.7 gm/dl (10.1-14.3) 10/12/19 05:07 Hct 37.4 % (30.3-42.9) 10/12/19 05:07 MCV 88 fl (79-97) 10/12/19 05:07 MCH 30 pg (28-32) 10/12/19 05:07 MCHC 34 % (30-34) 10/12/19 05:07 RDW 14.2 % (13.2-15.2) 10/12/19 05:07 Plt Count 291 K/mm3 (140-440) 10/12/19 05:07 Lymph % (Auto) 34.2 % (13.4-35.0) 10/12/19 05:07 [place] % (Auto) 7.4 % (0.0-7.3) H 10/12/19 05:07 Eos % (Auto) 5.8 % (0.0-4.3) H 10/12/19 05:07 Baso % (Auto) 1.1 % (0.0-1.8) 10/12/19 05:07 Lymph # 3.1 K/mm3 (1.2-5.4) 10/12/19 05:07 [place] # 0.7 K/mm3 (0.0-0.8) 10/12/19 05:07 Eos # 0.5 K/mm3 (0.0-0.4) H 10/12/19 05:07 Baso # 0.1 K/mm3 (0.0-0.1) 10/12/19 05:07 Seg Neutrophils % 51.5 % (40.0-70.0) 10/12/19 05:07 Seg Neutrophils # 4.6 K/mm3 (1.8-7.7) 10/12/19 05:07 Sodium 135 mmol/L (137-145) L 10/12/19 05:07 Potassium 4.6 mmol/L (3.6-5.0) 10/12/19 05:07 Chloride 96.9 mmol/L (98-107) L 10/12/19 05:07 Carbon Dioxide 27 mmol/L (22-30) 10/12/19 05:07 Anion Gap 16 mmol/L 10/12/19 05:07 BUN 12 mg/dL (7-17) 10/12/19 05:07 Creatinine 0.5 mg/dL (0.6-1.2) L 10/12/19 05:07 Estimated GFR > 60 ml/min 10/12/19 05:07 BUN/Creatinine Ratio 24 % 10/12/19 05:07 Glucose 117 mg/dL (65-100) H 10/12/19 05:07 POC Glucose 103 (70-105) 10/11/19 06:43 Hemoglobin A1c 5.3 % (4-6) 10/09/19 16:24 Osmolality 275 Mosm/kg 10/12/19 Unknown Calcium 9.5 mg/dL (8.4-10.2) 10/12/19 05:07 Total Bilirubin 0.40 mg/dL (0.1-1.2) 10/12/19 05:07 AST 22 units/L (5-40) 10/12/19 05:07 ALT 21 units/L (7-56) 10/12/19 05:07 Alkaline Phosphatase 93 units/L (35-129) 10/12/19 05:07 Total Protein 6.5 g/dL (6.3-8.2) 10/12/19 05:07 Albumin 4.0 g/dL (3.9-5) 10/12/19 05:07 Albumin/Globulin Ratio 1.6 % 10/12/19 05:07 Triglycerides 67 mg/dL (2-149) 10/09/19 16:24 Cholesterol 172 mg/dL (50-199) 10/09/19 16:24 LDL Cholesterol Direct 99 mg/dL (50-130) 10/09/19 16:24 HDL Cholesterol 68 mg/dL (40-59) H 10/09/19 16:24 Cholesterol/HDL Ratio 2.52 % 10/09/19 16:24 Procalcitonin < 0.05 ng/mL (<0.15) 10/13/19 07:55 TSH 1.200 mlU/mL (0.270-4.200) 10/09/19 16:24 Urine Color Yellow (Yellow) 10/12/19 05:29 Urine Turbidity Clear (Clear) 10/12/19 05:29 Urine pH 6.0 (5.0-7.0) 10/12/19 05:29 Ur Specific [place] 1.018 (1.003-1.030) 10/12/19 05:29 Urine Protein <15 mg/dl mg/dL (Negative) 10/12/19 05:29 Urine Glucose (UA) Neg mg/dL (Negative) 10/12/19 05:29 Urine Ketones Tr mg/dL (Negative) 10/12/19 05:29 Urine Blood Neg (Negative) 10/12/19 05:29 Urine Nitrite Neg (Negative) 10/12/19 05:29 Urine Bilirubin Neg (Negative) 10/12/19 05:29 Urine Urobilinogen < 2.0 mg/dL (<2.0) 10/12/19 05:29 Ur Leukocyte Esterase Tr (Negative) 10/12/19 05:29 Urine WBC (Auto) 6.0 /HPF (0.0-6.0) 10/12/19 05:29 Urine RBC (Auto) 3.0 /HPF (0.0-6.0) 10/12/19 05:29 U Epithel Cells (Auto) < 1.0 /HPF (0-13.0) 10/12/19 05:29 Urine Bacteria (Auto) 1+ /HPF (Negative) 10/12/19 05:29 Urine Mucus Few /HPF 10/12/19 05:29 Urine Osmolality 607 Mosm/kg 10/12/19 05:29 Last Vital Signs Temp 98.0 F 10/15/19 09:28 Pulse 80 10/15/19 19:20 Resp 18 10/15/19 09:28 BP 130/91 10/15/19 19:20 Pulse Ox 98 10/15/19 19:20
[2019-10-16] MEDS: OXcarbazepine 300 MG TAB PO SCH ×2 (09:59→21:04)
[2019-10-16] MEDS: QUEtiapine 100 MG TAB PO SCH ×2 (09:59→21:03)
[2019-10-16] MEDS: clonazePAM 0.5 MG TAB PO SCH ×2 (09:59→21:03)
[2019-10-16] MEDS: lamoTRIgine 100 MG TAB PO SCH (10:00)
[2019-10-16] MEDS: POTASSIUM CHLORIDE ER 10 MEQ TAB PO SCH (10:00)
[2019-10-16] MEDS: busPIRone 10 MG TAB PO SCH ×2 (10:00→21:03)
[2019-10-16] MEDS: oxyCODONE /ACETAMINOPHEN 5-325MG TAB PO PRN ×2 (12:33→20:54)
[2019-10-17] MEDS: oxyCODONE /ACETAMINOPHEN 5-325MG TAB PO PRN (04:41)
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
[2019-10-17] MEDS: QUEtiapine 100 MG TAB PO SCH ×2 (09:07→21:22)
[2019-10-17] MEDS: busPIRone 10 MG TAB PO SCH ×2 (09:07→21:21)
[2019-10-17] MEDS: clonazePAM 0.5 MG TAB PO SCH ×2 (09:07→21:22)
[2019-10-17] MEDS: lamoTRIgine 100 MG TAB PO SCH (09:07)
[2019-10-17] MEDS: POTASSIUM CHLORIDE ER 10 MEQ TAB PO SCH (09:08)
[2019-10-17] MEDS: OXcarbazepine 300 MG TAB PO SCH ×2 (09:08→21:21)
[2019-10-18] MEDS: oxyCODONE /ACETAMINOPHEN 5-325MG TAB PO PRN ×3 (02:20→23:50)
--- NOTE | 2019-10-18 07:35 | Progress Note ---
Subjective Date of service: 10/18/19 Principal diagnosis: Severe manic bipolar 1 disorder with psychotic behavior Subjective Comment: Psych Nurse: Patient was mostly agreeable last evening. She was compliant with medications. Patient slept until 2 am when she requested pain med for her feet. She stayed awake until around 5 am. Will continue to monitor patient for safety. Psych Progress Patient seen this AM, says she knows I start my shift at 7, and I am the only p erson nice to her. Patient says she does not like shes been held here on 1013, that she is a nice person and never rude but people make her be that way. Patient says she needs a medical doctor for her medical issues and not psychiatry help. Patient says she would also like to eat in the breakfast room with other patient and not in different room. I informed patients shes eating alone because she was disturbing other patients and giving orders to them. Pt says she had a preferred seat and wanted that other pt to move. I agreed to have pt eat in breakfast room only if she will not disturb other patients and sit wherever shes been placed by the tech. Pt complied and was moved back. Reason for inpatient psychiatric hospitalization: Improving irritability and compliance with medications. Will plan for safety discharge MENTAL STATUS EXAMINATION General Appearance and Behavior: Age appropriate, good hygiene, wearing appropriate clothes, lying in bed, good eye contact, cooperative polite with questioning. Cooperation: engaged and participated Psychomotor Behavior: unremarkable and within normal limits Mood: good but wants to leave here Affect and affective range: irritability Thought Process: Illogical Thought Content: Paranoid Speech: pressured, loud volume Intellectual Functioning: Average Suicidal Ideation: Denies SI Homicidal Ideation: Denies HI Impulse Control: Impaired Insight and Judgment: Limited insight and judgment Memory: unaccessible Attention: Divided attention impaired Orientation: Alert, oriented Assessment and Plan Psychiatric problem (1) Severe manic bipolar 1 disorder with psychotic behavior Current Visit: Yes Status: Acute Treatment Plan Pt sonjaenlty refusing meds Patient will be admitted for inpatient psychiatric evaluation, medication adjustment and close monitoring The patient's behavior, mood, sleep and appetite will be closely monitored. Patient will be enrolled in individual and group therapeutic sessions and encouraged to attend. Patient will be provided with a safe and structured environment. Patient's physical health needs will be addressed by the Hospitalist. Hospitalist Consulted Labs including CBC, CMP, Lipid profile and Hemoglobin A1C ordered Social Assessment will be completed and the Soda Flaker will work with patient and family to ensure a suitable and safe disposition Medication adjustment will be made as clinically indicated Usual Wellness Episcopal/Preservation: - Start Trazodone 50 mg po QHS & 50 mg po QHS PRN between 10 PM & 2 AM for insomnia - Start Melatonin 5 mg po QHS to promote circadian rhythm - Start [place]-3 for brain health, reduce impulsivity, and as adjunctive treatment for mood disorder, continue upon discharge given overall benefits. - Start B1 prophylaxis with 200 mg po for 5 days The patient agreed on the treatment plan, understood the risk, benefit, alternative treatment, potential consequence of no treatment, and gave informed consent. Initial Certification Inpatient psych services: I certify that the inpatient psychiatric services are required for treatment that could reasonably be expected to improve the patient's condition. Assessment and Plan - Patient Problems (1) Severe manic bipolar 1 disorder with psychotic behavior Current Visit: Yes Status: Acute Medications and Allergies Allergies Allergy/AdvReac Type Severity Reaction Status Date / Time divalproex sodium Allergy Hives Verified 02/02/13 15:16 [From Depakote] Interferons Allergy Hives Verified 02/02/13 15:15 latex Allergy Hives Verified 02/02/13 15:17 levofloxacin [From Levaquin] Allergy Unknown Unverified 10/06/19 11:18 mupirocin [From Bactroban] Allergy Hives Verified 02/02/13 15:17 mupirocin calcium Allergy Hives Verified 02/02/13 15:17 [From Bactroban] Penicillins Allergy Hives Verified 02/02/13 15:16 Sulfa (Sulfonamide Allergy Unknown Verified 10/11/19 07:23 Antibiotics) lithium AdvReac Unknown Verified 10/11/19 07:24 mycins Allergy Hives Uncoded 02/02/13 15:17 Home Medications Medication Instructions Recorded Confirmed Last Taken Type Furosemide [Lasix TAB] 20 mg PO UNK 10/06/19 10/06/19 Unknown History Nitrofurantoin Macrocrystal 100 mg PO UNK 10/06/19 10/06/19 Unknown History [Nitrofurantoin] OXcarbazepine [Trileptal] 600 mg PO [facility]K 10/06/19 10/06/19 Unknown History Potassium Chloride [K-Dur] 10 meq PO [facility] 10/06/19 10/06/19 Unknown History QUEtiapine [SEROquel] 200 mg PO [facility] 10/06/19 10/06/19 Unknown History Tetracycline HCl 250 mg PO [facility] 10/06/19 10/06/19 Unknown History busPIRone [Buspar] 5 mg PO [facility] 10/06/19 10/06/19 Unknown History hydrOXYzine HCL [Atarax] 25 mg PO [facility] 10/06/19 10/06/19 Unknown History lamoTRIgine [LaMICtal] 100 mg PO [facility] 10/06/19 10/06/19 Unknown History Active Meds: Active Medications Buspirone HCl (Buspar) 15 mg PO BID [facility] Last Admin: 10/17/19 21:21 Dose: 15 mg Documented by: Clonazepam (Klonopin) 0.5 mg PO BID [facility] Last Admin: 10/17/19 21:22 Dose: 0.5 mg Documented by: Hydroxyzine Pamoate (Vistaril) 25 mg PO Q6H PRN PRN Reason: Anxiety Last Admin: 10/11/19 21:34 Dose: 25 mg Documented by: Lamotrigine (Lamictal) 100 mg PO DAILY [facility] Last Admin: 10/17/19 09:07 Dose: 100 mg Documented by: Lorazepam (Ativan) 2 mg IM Q4HR PRN PRN Reason: Agitation Last Admin: 10/13/19 05:01 Dose: 2 mg Documented by: Oxcarbazepine (Trileptal) 600 mg PO BID [facility] Last Admin: 10/17/19 21:21 Dose: 600 mg Documented by: Oxycodone/Acetaminophen (Percocet 5/325) 1 tab PO Q6H PRN PRN Reason: Pain, Moderate (4-6) Last Admin: 10/18/19 02:20 Dose: 1 tab Documented by: Potassium Chloride (K-Dur) 10 meq PO DAILY [facility] Last Admin: 10/17/19 09:08 Dose: 10 meq Documented by: Quetiapine Fumarate (Seroquel) 300 mg PO BID [facility] Last Admin: 10/17/19 21:22 Dose: 300 mg Documented by: Results - Results Labs/Vitals: Laboratory Last Values WBC 9.0 K/mm3 (4.5-11.0) 10/12/19 05:07 RBC 4.23 M/mm3 (3.65-5.03) 10/12/19 05:07 Hgb 12.7 gm/dl (10.1-14.3) 10/12/19 05:07 Hct 37.4 % (30.3-42.9) 10/12/19 05:07 MCV 88 fl (79-97) 10/12/19 05:07 MCH 30 pg (28-32) 10/12/19 05:07 MCHC 34 % (30-34) 10/12/19 05:07 RDW 14.2 % (13.2-15.2) 10/12/19 05:07 Plt Count 291 K/mm3 (140-440) 10/12/19 05:07 Lymph % (Auto) 34.2 % (13.4-35.0) 10/12/19 05:07 [place] % (Auto) 7.4 % (0.0-7.3) H 10/12/19 05:07 Eos % (Auto) 5.8 % (0.0-4.3) H 10/12/19 05:07 Baso % (Auto) 1.1 % (0.0-1.8) 10/12/19 05:07 Lymph # 3.1 K/mm3 (1.2-5.4) 10/12/19 05:07 [place] # 0.7 K/mm3 (0.0-0.8) 10/12/19 05:07 Eos # 0.5 K/mm3 (0.0-0.4) H 10/12/19 05:07 Baso # 0.1 K/mm3 (0.0-0.1) 10/12/19 05:07 Seg Neutrophils % 51.5 % (40.0-70.0) 10/12/19 05:07 Seg Neutrophils # 4.6 K/mm3 (1.8-7.7) 10/12/19 05:07 Sodium 135 mmol/L (137-145) L 10/12/19 05:07 Potassium 4.6 mmol/L (3.6-5.0) 10/12/19 05:07 Chloride 96.9 mmol/L (98-107) L 10/12/19 05:07 Carbon Dioxide 27 mmol/L (22-30) 10/12/19 05:07 Anion Gap 16 mmol/L 10/12/19 05:07 BUN 12 mg/dL (7-17) 10/12/19 05:07 Creatinine 0.5 mg/dL (0.6-1.2) L 10/12/19 05:07 Estimated GFR > 60 ml/min 10/12/19 05:07 BUN/Creatinine Ratio 24 % 10/12/19 05:07 Glucose 117 mg/dL (65-100) H 10/12/19 05:07 POC Glucose 103 (70-105) 10/11/19 06:43 Hemoglobin A1c 5.3 % (4-6) 10/09/19 16:24 Osmolality 275 Mosm/kg 10/12/19 Unknown Calcium 9.5 mg/dL (8.4-10.2) 10/12/19 05:07 Total Bilirubin 0.40 mg/dL (0.1-1.2) 10/12/19 05:07 AST 22 units/L (5-40) 10/12/19 05:07 ALT 21 units/L (7-56) 10/12/19 05:07 Alkaline Phosphatase 93 units/L (35-129) 10/12/19 05:07 Total Protein 6.5 g/dL (6.3-8.2) 10/12/19 05:07 Albumin 4.0 g/dL (3.9-5) 10/12/19 05:07 Albumin/Globulin Ratio 1.6 % 10/12/19 05:07 Triglycerides 67 mg/dL (2-149) 10/09/19 16:24 Cholesterol 172 mg/dL (50-199) 10/09/19 16:24 LDL Cholesterol Direct 99 mg/dL (50-130) 10/09/19 16:24 HDL Cholesterol 68 mg/dL (40-59) H 10/09/19 16:24 Cholesterol/HDL Ratio 2.52 % 10/09/19 16:24 Procalcitonin < 0.05 ng/mL (<0.15) 10/13/19 07:55 TSH 1.200 mlU/mL (0.270-4.200) 10/09/19 16:24 Urine Color Yellow (Yellow) 10/12/19 05:29 Urine Turbidity Clear (Clear) 10/12/19 05:29 Urine pH 6.0 (5.0-7.0) 10/12/19 05:29 Ur Specific [place] 1.018 (1.003-1.030) 10/12/19 05:29 Urine Protein <15 mg/dl mg/dL (Negative) 10/12/19 05:29 Urine Glucose (UA) Neg mg/dL (Negative) 10/12/19 05:29 Urine Ketones Tr mg/dL (Negative) 10/12/19 05:29 Urine Blood Neg (Negative) 10/12/19 05:29 Urine Nitrite Neg (Negative) 10/12/19 05:29 Urine Bilirubin Neg (Negative) 10/12/19 05:29 Urine Urobilinogen < 2.0 mg/dL (<2.0) 10/12/19 05:29 Ur Leukocyte Esterase Tr (Negative) 10/12/19 05:29 Urine WBC (Auto) 6.0 /HPF (0.0-6.0) 10/12/19 05:29 Urine RBC (Auto) 3.0 /HPF (0.0-6.0) 10/12/19 05:29 U Epithel Cells (Auto) < 1.0 /HPF (0-13.0) 10/12/19 05:29 Urine Bacteria (Auto) 1+ /HPF (Negative) 10/12/19 05:29 Urine Mucus Few /HPF 10/12/19 05:29 Urine Osmolality 607 Mosm/kg 10/12/19 05:29 Coronavirus (PCR) Negative (Negative) 10/16/19 Unknown Last Vital Signs Temp 98.1 F 10/17/19 18:10 Pulse 81 10/17/19 18:10 Resp 18 10/17/19 18:10 BP 108/48 10/17/19 18:10 Pulse Ox 98 10/17/19 18:10
[2019-10-18] MEDS: POTASSIUM CHLORIDE ER 10 MEQ TAB PO SCH (09:43)
[2019-10-18] MEDS: OXcarbazepine 300 MG TAB PO SCH ×2 (09:43→22:18)
[2019-10-18] MEDS: QUEtiapine 100 MG TAB PO SCH ×2 (09:44→22:19)
[2019-10-18] MEDS: clonazePAM 0.5 MG TAB PO SCH ×2 (09:44→22:20)
[2019-10-18] MEDS: busPIRone 10 MG TAB PO SCH ×2 (09:44→22:20)
[2019-10-18] MEDS: lamoTRIgine 100 MG TAB PO SCH (09:44)
[2019-10-19 00:49] VITALS: BP 123/54
[2019-10-19] MEDS: oxyCODONE /ACETAMINOPHEN 5-325MG TAB PO PRN ×2 (06:18→15:13)
--- NOTE | 2019-10-19 07:40 | Progress Note ---
Subjective Date of service: 10/19/19 Principal diagnosis: Severe manic bipolar 1 disorder with psychotic behavior Subjective Comment: Psych Nurse: GHULAM. Pain meds given x2 overnight. Rested 5.50 hours. Dressing to LEs intact. Encouraged not to removed it wound dressings. No acute distress obs erved and none reported. Resting in bed at this time. Will continue to monitor. Psych Progress Patient seen this AM, says she wants to leave today, she has money and I should call Toy because she is the one that put her here. Patient says I should please address another patient sitting on her chair, I informed pt that, no assigned chair, its first come first serve. I also informed patient to smile more often and be nice, all care givers here her after he wellness both mentally and physically. Patient says she is a nice person. She reports sleeping and eating okay, complained of ankle pain but says shes been getting her pain meds. Reason for inpatient psychiatric hospitalization: Improving irritability and compliance with medications. Will plan for safety discharge MENTAL STATUS EXAMINATION General Appearance and Behavior: Age appropriate, good hygiene, wearing appropriate clothes, lying in bed, good eye contact, cooperative polite with questioning. Cooperation: engaged and participated Psychomotor Behavior: unremarkable and within normal limits Mood: good but wants to leave here Affect and affective range: irritability Thought Process: Illogical Thought Content: Paranoid Speech: pressured, loud volume Intellectual Functioning: Average Suicidal Ideation: Denies SI Homicidal Ideation: Denies HI Impulse Control: Impaired Insight and Judgment: Limited insight and judgment Memory: unaccessible Attention: Divided attention impaired Orientation: Alert, oriented Assessment and Plan Psychiatric problem (1) Severe manic bipolar 1 disorder with psychotic behavior Current Visit: Yes Status: Acute Treatment Plan Pt sonjaenlty refusing meds Patient will be admitted for inpatient psychiatric evaluation, medication adjustment and close monitoring The patient's behavior, mood, sleep and appetite will be closely monitored. Patient will be enrolled in individual and group therapeutic sessions and encouraged to attend. Patient will be provided with a safe and structured environment. Patient's physical health needs will be addressed by the Hospitalist. Hospitalist Consulted Labs including CBC, CMP, Lipid profile and Hemoglobin A1C ordered Social Assessment will be completed and the [facility] will work with patient and family to ensure a suitable and safe disposition Medication adjustment will be made as clinically indicated Usual Wellness Confucianism/Preservation: - Start Trazodone 50 mg po QHS & 50 mg po QHS PRN between 10 PM & 2 AM for insomnia - Start Melatonin 5 mg po QHS to promote circadian rhythm - Start Nixa-3 for brain health, reduce impulsivity, and as adjunctive treatment for mood disorder, continue upon discharge given overall benefits. - Start B1 prophylaxis with 200 mg po for 5 days The patient agreed on the treatment plan, understood the risk, benefit, alternative treatment, potential consequence of no treatment, and gave informed consent. Initial Certification Inpatient psych services: I certify that the inpatient psychiatric services are required for treatment that could reasonably be expected to improve the patient's condition. Assessment and Plan - Patient Problems (1) Severe manic bipolar 1 disorder with psychotic behavior Current Visit: Yes Status: Acute Medications and Allergies Allergies Allergy/AdvReac Type Severity Reaction Status Date / Time divalproex sodium Allergy Hives Verified 02/02/13 15:16 [From Depakote] Interferons Allergy Hives Verified 02/02/13 15:15 latex Allergy Hives Verified 02/02/13 15:17 levofloxacin [From Levaquin] Allergy Unknown Unverified 10/06/19 11:18 mupirocin [From Bactroban] Allergy Hives Verified 02/02/13 15:17 mupirocin calcium Allergy Hives Verified 02/02/13 15:17 [From Bactroban] Penicillins Allergy Hives Verified 02/02/13 15:16 Sulfa (Sulfonamide Allergy Unknown Verified 10/11/19 07:23 Antibiotics) lithium AdvReac Unknown Verified 10/11/19 07:24 mycins Allergy Hives Uncoded 02/02/13 15:17 Home Medications Medication Instructions Recorded Confirmed Last Taken Type Furosemide [Lasix TAB] 20 mg PO [facility] 10/06/19 10/06/19 Unknown History Nitrofurantoin Macrocrystal 100 mg PO [facility] 10/06/19 10/06/19 Unknown History [Nitrofurantoin] OXcarbazepine [Trileptal] 600 mg PO [facility] 10/06/19 10/06/19 Unknown History Potassium Chloride [K-Dur] 10 meq PO [facility] 10/06/19 10/06/19 Unknown History QUEtiapine [SEROquel] 200 mg PO [facility] 10/06/19 10/06/19 Unknown History Tetracycline HCl 250 mg PO [facility] 10/06/19 10/06/19 Unknown History busPIRone [Buspar] 5 mg PO [facility] 10/06/19 10/06/19 Unknown History hydrOXYzine HCL [Atarax] 25 mg PO [facility] 10/06/19 10/06/19 Unknown History lamoTRIgine [LaMICtal] 100 mg PO [facility] 10/06/19 10/06/19 Unknown History Active Meds: Active Medications Buspirone HCl (Buspar) 15 mg PO BID [facility] Last Admin: 10/18/19 22:20 Dose: 15 mg Documented by: Clonazepam (Klonopin) 0.5 mg PO BID [facility] Last Admin: 10/18/19 22:20 Dose: 0.5 mg Documented by: Hydroxyzine Pamoate (Vistaril) 25 mg PO Q6H PRN PRN Reason: Anxiety Last Admin: 10/11/19 21:34 Dose: 25 mg Documented by: Lamotrigine (Lamictal) 100 mg PO DAILY [facility] Last Admin: 10/18/19 09:44 Dose: 100 mg Documented by: Lorazepam (Ativan) 2 mg IM Q4HR PRN PRN Reason: Agitation Last Admin: 10/13/19 05:01 Dose: 2 mg Documented by: Oxcarbazepine (Trileptal) 600 mg PO BID [facility] Last Admin: 10/18/19 22:18 Dose: 600 mg Documented by: Oxycodone/Acetaminophen (Percocet 5/325) 1 tab PO Q6H PRN PRN Reason: Pain, Moderate (4-6) Last Admin: 10/19/19 06:18 Dose: 1 tab Documented by: Potassium Chloride (K-Dur) 10 meq PO DAILY [facility] Last Admin: 10/18/19 09:43 Dose: 10 meq Documented by: Quetiapine Fumarate (Seroquel) 300 mg PO BID [facility] Last Admin: 10/18/19 22:19 Dose: 300 mg Documented by: Results - Results Labs/Vitals: Laboratory Last Values WBC 9.0 K/mm3 (4.5-11.0) 10/12/19 05:07 RBC 4.23 M/mm3 (3.65-5.03) 10/12/19 05:07 Hgb 12.7 gm/dl (10.1-14.3) 10/12/19 05:07 Hct 37.4 % (30.3-42.9) 10/12/19 05:07 MCV 88 fl (79-97) 10/12/19 05:07 MCH 30 pg (28-32) 10/12/19 05:07 MCHC 34 % (30-34) 10/12/19 05:07 RDW 14.2 % (13.2-15.2) 10/12/19 05:07 Plt Count 291 K/mm3 (140-440) 10/12/19 05:07 Lymph % (Auto) 34.2 % (13.4-35.0) 10/12/19 05:07 [place] % (Auto) 7.4 % (0.0-7.3) H 10/12/19 05:07 Eos % (Auto) 5.8 % (0.0-4.3) H 10/12/19 05:07 Baso % (Auto) 1.1 % (0.0-1.8) 10/12/19 05:07 Lymph # 3.1 K/mm3 (1.2-5.4) 10/12/19 05:07 [place] # 0.7 K/mm3 (0.0-0.8) 10/12/19 05:07 Eos # 0.5 K/mm3 (0.0-0.4) H 10/12/19 05:07 Baso # 0.1 K/mm3 (0.0-0.1) 10/12/19 05:07 Seg Neutrophils % 51.5 % (40.0-70.0) 10/12/19 05:07 Seg Neutrophils # 4.6 K/mm3 (1.8-7.7) 10/12/19 05:07 Sodium 135 mmol/L (137-145) L 10/12/19 05:07 Potassium 4.6 mmol/L (3.6-5.0) 10/12/19 05:07 Chloride 96.9 mmol/L (98-107) L 10/12/19 05:07 Carbon Dioxide 27 mmol/L (22-30) 10/12/19 05:07 Anion Gap 16 mmol/L 10/12/19 05:07 BUN 12 mg/dL (7-17) 10/12/19 05:07 Creatinine 0.5 mg/dL (0.6-1.2) L 10/12/19 05:07 Estimated GFR > 60 ml/min 10/12/19 05:07 BUN/Creatinine Ratio 24 % 10/12/19 05:07 Glucose 117 mg/dL (65-100) H 10/12/19 05:07 POC Glucose 103 (70-105) 10/11/19 06:43 Hemoglobin A1c 5.3 % (4-6) 10/09/19 16:24 Osmolality 275 Mosm/kg 10/12/19 Unknown Calcium 9.5 mg/dL (8.4-10.2) 10/12/19 05:07 Total Bilirubin 0.40 mg/dL (0.1-1.2) 10/12/19 05:07 AST 22 units/L (5-40) 10/12/19 05:07 ALT 21 units/L (7-56) 10/12/19 05:07 Alkaline Phosphatase 93 units/L (35-129) 10/12/19 05:07 Total Protein 6.5 g/dL (6.3-8.2) 10/12/19 05:07 Albumin 4.0 g/dL (3.9-5) 10/12/19 05:07 Albumin/Globulin Ratio 1.6 % 10/12/19 05:07 Triglycerides 67 mg/dL (2-149) 10/09/19 16:24 Cholesterol 172 mg/dL (50-199) 10/09/19 16:24 LDL Cholesterol Direct 99 mg/dL (50-130) 10/09/19 16:24 HDL Cholesterol 68 mg/dL (40-59) H 10/09/19 16:24 Cholesterol/HDL Ratio 2.52 % 10/09/19 16:24 Procalcitonin < 0.05 ng/mL (<0.15) 10/13/19 07:55 TSH 1.200 mlU/mL (0.270-4.200) 10/09/19 16:24 Urine Color Yellow (Yellow) 10/12/19 05:29 Urine Turbidity Clear (Clear) 10/12/19 05:29 Urine pH 6.0 (5.0-7.0) 10/12/19 05:29 Ur Specific [place] 1.018 (1.003-1.030) 10/12/19 05:29 Urine Protein <15 mg/dl mg/dL (Negative) 10/12/19 05:29 Urine Glucose (UA) Neg mg/dL (Negative) 10/12/19 05:29 Urine Ketones Tr mg/dL (Negative) 10/12/19 05:29 Urine Blood Neg (Negative) 10/12/19 05:29 Urine Nitrite Neg (Negative) 10/12/19 05:29 Urine Bilirubin Neg (Negative) 10/12/19 05:29 Urine Urobilinogen < 2.0 mg/dL (<2.0) 10/12/19 05:29 Ur Leukocyte Esterase Tr (Negative) 10/12/19 05:29 Urine WBC (Auto) 6.0 /HPF (0.0-6.0) 10/12/19 05:29 Urine RBC (Auto) 3.0 /HPF (0.0-6.0) 10/12/19 05:29 U Epithel Cells (Auto) < 1.0 /HPF (0-13.0) 10/12/19 05:29 Urine Bacteria (Auto) 1+ /HPF (Negative) 10/12/19 05:29 Urine Mucus Few /HPF 10/12/19 05:29 Urine Osmolality 607 Mosm/kg 10/12/19 05:29 Coronavirus (PCR) Negative (Negative) 10/16/19 Unknown Last Vital Signs Temp 98.6 F 10/18/19 22:00 Pulse 84 10/18/19 22:00 Resp 18 10/18/19 23:50 BP 123/54 10/18/19 22:00 Pulse Ox 96 10/18/19 22:00
[2019-10-19] MEDS: busPIRone 10 MG TAB PO SCH (10:51)
[2019-10-19] MEDS: OXcarbazepine 300 MG TAB PO SCH (10:51)
[2019-10-19] MEDS: POTASSIUM CHLORIDE ER 10 MEQ TAB PO SCH (10:51)
[2019-10-19] MEDS: lamoTRIgine 100 MG TAB PO SCH (10:52)
[2019-10-19] MEDS: QUEtiapine 100 MG TAB PO SCH (10:52)
[2019-10-19] MEDS: clonazePAM 0.5 MG TAB PO SCH (10:52)
--- NOTE | 2019-10-19 11:48 | Discharge Summary ---
Providers - Providers Date of Admission: 10/06/19 11:19 Date of discharge: 10/19/19 Attending physician: AMY SOLORZANO MD 10/06/19 11:19 Consult to Physician [CONS] Routine Comment: Consulting Provider: OLIVA BRYANT Physician Instructions: Reason For Exam: Medical management 10/08/19 07:32 Consult to Wound/ET Nurse [CONS] Stat Reason For Exam: wound eval 10/08/19 09:36 Consult to Dietitian/Nutrition [CONS] Stat Physician Instructions: Reason For Exam: Reason for Consult: Poor oral intake 10/14/19 10:35 Consult to Wound/ET Nurse [CONS] Stat Reason For Exam: wound eval Primary care physician: [facility] Hospitalization Condition: Good Hospital course: The patient was provided inpatient psychiatric treatment with safe and supportive environment, group/individual therapy, psychiatric medication, medication adjustment, adverse effect monitor, medical evaluation, medical treatment, social service assessment, social support meeting, placement assessment and psycho-education. The patients mood, cognition, behavior, motivation, compliance to treatment and appreciation on family/social support are improved and stabilized. At the time of discharge, the patient had no suicidal ideas, no homicidal ideas, no aggressive thoughts, no endangering behavior and no debilitating adverse effects. The patient agreed on the treatment plan, understood the risk, benefit, alternative treatment, potential consequence of no treatment, and gave informed consent. Disposition: DC/[place]-03 W [facility] Allergies/Adverse Reactions: Allergies divalproex sodium [From Depakote] Allergy (Verified 02/02/13 15:16) Hives Interferons Allergy (Verified 02/02/13 15:15) Hives latex Allergy (Verified 02/02/13 15:17) Hives levofloxacin [From Levaquin] Allergy (Unverified 10/06/19 11:18) Unknown mupirocin [From Bactroban] Allergy (Verified 02/02/13 15:17) Hives mupirocin calcium [From Bactroban] Allergy (Verified 02/02/13 15:17) Hives Penicillins Allergy (Verified 02/02/13 15:16) Hives Sulfa (Sulfonamide Antibiotics) Allergy (Verified 10/11/19 07:23) Unknown lithium Adverse Reaction (Verified 10/11/19 07:24) Unknown mycins Allergy (Uncoded 02/02/13 15:17) Hives Vital Signs: Last Vital Signs Temp 98.6 F 10/18/19 22:00 Pulse 84 10/18/19 22:00 Resp 18 10/18/19 23:50 BP 123/54 10/18/19 22:00 Pulse Ox 96 10/18/19 22:00 Last Lab: Laboratory Last Values WBC 9.0 K/mm3 (4.5-11.0) 10/12/19 05:07 RBC 4.23 M/mm3 (3.65-5.03) 10/12/19 05:07 Hgb 12.7 gm/dl (10.1-14.3) 10/12/19 05:07 Hct 37.4 % (30.3-42.9) 10/12/19 05:07 MCV 88 fl (79-97) 10/12/19 05:07 MCH 30 pg (28-32) 10/12/19 05:07 MCHC 34 % (30-34) 10/12/19 05:07 RDW 14.2 % (13.2-15.2) 10/12/19 05:07 Plt Count 291 K/mm3 (140-440) 10/12/19 05:07 Lymph % (Auto) 34.2 % (13.4-35.0) 10/12/19 05:07 [place] % (Auto) 7.4 % (0.0-7.3) H 10/12/19 05:07 Eos % (Auto) 5.8 % (0.0-4.3) H 10/12/19 05:07 Baso % (Auto) 1.1 % (0.0-1.8) 10/12/19 05:07 Lymph # 3.1 K/mm3 (1.2-5.4) 10/12/19 05:07 [place] # 0.7 K/mm3 (0.0-0.8) 10/12/19 05:07 Eos # 0.5 K/mm3 (0.0-0.4) H 10/12/19 05:07 Baso # 0.1 K/mm3 (0.0-0.1) 10/12/19 05:07 Seg Neutrophils % 51.5 % (40.0-70.0) 10/12/19 05:07 Seg Neutrophils # 4.6 K/mm3 (1.8-7.7) 10/12/19 05:07 Sodium 135 mmol/L (137-145) L 10/12/19 05:07 Potassium 4.6 mmol/L (3.6-5.0) 10/12/19 05:07 Chloride 96.9 mmol/L (98-107) L 10/12/19 05:07 Carbon Dioxide 27 mmol/L (22-30) 10/12/19 05:07 Anion Gap 16 mmol/L 10/12/19 05:07 BUN 12 mg/dL (7-17) 10/12/19 05:07 Creatinine 0.5 mg/dL (0.6-1.2) L 10/12/19 05:07 Estimated GFR > 60 ml/min 10/12/19 05:07 BUN/Creatinine Ratio 24 % 10/12/19 05:07 Glucose 117 mg/dL (65-100) H 10/12/19 05:07 POC Glucose 103 (70-105) 10/11/19 06:43 Hemoglobin A1c 5.3 % (4-6) 10/09/19 16:24 Osmolality 275 Mosm/kg 10/12/19 Unknown Calcium 9.5 mg/dL (8.4-10.2) 10/12/19 05:07 Total Bilirubin 0.40 mg/dL (0.1-1.2) 10/12/19 05:07 AST 22 units/L (5-40) 10/12/19 05:07 ALT 21 units/L (7-56) 10/12/19 05:07 Alkaline Phosphatase 93 units/L (35-129) 10/12/19 05:07 Total Protein 6.5 g/dL (6.3-8.2) 10/12/19 05:07 Albumin 4.0 g/dL (3.9-5) 10/12/19 05:07 Albumin/Globulin Ratio 1.6 % 10/12/19 05:07 Triglycerides 67 mg/dL (2-149) 10/09/19 16:24 Cholesterol 172 mg/dL (50-199) 10/09/19 16:24 LDL Cholesterol Direct 99 mg/dL (50-130) 10/09/19 16:24 HDL Cholesterol 68 mg/dL (40-59) H 10/09/19 16:24 Cholesterol/HDL Ratio 2.52 % 10/09/19 16:24 Procalcitonin < 0.05 ng/mL (<0.15) 10/13/19 07:55 TSH 1.200 mlU/mL (0.270-4.200) 10/09/19 16:24 Urine Color Yellow (Yellow) 10/12/19 05:29 Urine Turbidity Clear (Clear) 10/12/19 05:29 Urine pH 6.0 (5.0-7.0) 10/12/19 05:29 Ur Specific [place] 1.018 (1.003-1.030) 10/12/19 05:29 Urine Protein <15 mg/dl mg/dL (Negative) 10/12/19 05:29 Urine Glucose (UA) Neg mg/dL (Negative) 10/12/19 05:29 Urine Ketones Tr mg/dL (Negative) 10/12/19 05:29 Urine Blood Neg (Negative) 10/12/19 05:29 Urine Nitrite Neg (Negative) 10/12/19 05:29 Urine Bilirubin Neg (Negative) 10/12/19 05:29 Urine Urobilinogen < 2.0 mg/dL (<2.0) 10/12/19 05:29 Ur Leukocyte Esterase Tr (Negative) 10/12/19 05:29 Urine WBC (Auto) 6.0 /HPF (0.0-6.0) 10/12/19 05:29 Urine RBC (Auto) 3.0 /HPF (0.0-6.0) 10/12/19 05:29 U Epithel Cells (Auto) < 1.0 /HPF (0-13.0) 10/12/19 05:29 Urine Bacteria (Auto) 1+ /HPF (Negative) 10/12/19 05:29 Urine Mucus Few /HPF 10/12/19 05:29 Urine Osmolality 607 Mosm/kg 10/12/19 05:29 Coronavirus (PCR) Negative (Negative) 10/16/19 Unknown - Discharge Diagnoses (1) Severe manic bipolar 1 disorder with psychotic behavior Status: Acute Core Measure Documentation - Palliative Care Palliative Care/ Comfort Measures: Not Applicable - Core Measures Any of the following diagnoses?: none Exam - Constitutional Vitals: Temp Pulse Resp BP Pulse Ox 98.6 F 84 18 123/54 96 10/18/19 22:00 08/23/20 22:00 10/18/19 23:50 10/18/19 22:00 10/18/19 22:00 - EENT Eyes: Present: PERRL, EOM intact ENT: clear oral mucosa - Neck Neck: Present: supple, normal ROM - Respiratory Respiratory effort: normal - Extremities Extremities: abnormal Extremity abnormal: edema - Abdominal General gastrointestinal: Present: deferred Female genitourinary: Present: deferred - Integumentary Integumentary: Present: warm, dry, erythema, rash Plan Activity: advance as tolerated Care Plan Goals: Maintain good and stable mental health. Plan of Treatment: The patient should be compliant with medications, not to use drugs and not to drink alcohol. The patient understands that if suicidal ideas, homicidal ideas, or any endangering thoughts arise, the patient should immediately seek for emergent assistance including but not limited to crisis hot line and emergency room. Follow up with outpatient Psychiatrist and PCP within 7 - 14 days of discharge. Follow up with: PRIMARY CARE,MD [Primary Care Provider] - 7 Days Prescriptions: busPIRone [Buspar] 15 mg PO BID #60 tablet clonazePAM [KlonoPIN] 0.5 mg PO BID #30 tablet QUEtiapine [SEROquel] 300 mg PO BID #60 tablet OXcarbazepine [Trileptal] 600 mg PO BID #30 tablet
== END 2019-10-19 16:50 | DRG 885 ==
LOC: 3A 10:38 → UNDOADMIN 10:38 → 5A 11:19
PROVIDERS: ADMIT Psychiatry & Neurology Psychiatry; ATTEND Psychiatry & Neurology Psychiatry
DX: F31.2 Bipolar disorder, current episode manic severe with psychotic features (principal); E87.1 Hypo-osmolality and hyponatremia; I10 Essential (primary) hypertension; E11.51 Type 2 diabetes mellitus with diabetic peripheral angiopathy without gangrene; Z20.828 Contact with and (suspected) exposure to other viral communicable diseases; Z88.0 Allergy status to penicillin; Z88.2 Allergy status to sulfonamides; Z88.8 Allergy status to other drugs, medicaments and biological substances; Z88.1 Allergy status to other antibiotic agents; Z91.040 Latex allergy status; Z91.14 Patient's other noncompliance with medication regimen
CPT/HCPCS: 36415; 80053; 80061; 81001; 82962; 83036; 83930; 83935; 84145; 84443; 85025; G0378; J2060; J3486; Q0177; U0003-CS